=== PATIENT | female | born 1960 | race Caucasian/White ===

== ENCOUNTER → 2017-08-18 16:48 | Outpatient (CLI) | payer OTHER, SELFPAY ==
[2017-08-21 08:57] LABS: HPV APTIMA, High Risk Negative (Negative)
== END ==
PROVIDERS: Family Provider Nurse Practitioner Family; PCP Nurse Practitioner Family; Visit Provider Obstetrics & Gynecology
DX: Z12.4 Encounter for screening for malignant neoplasm of cervix (principal)
CPT/HCPCS: 88175; G0145

== ENCOUNTER → 2017-10-01 12:12 | Outpatient (CLI) | payer OTHER, SELFPAY ==
--- NOTE | 2017-10-01 12:15 | US_ITS ---
STUDY: ULTRASOUND OF THE FEMALE PELVIS - COMPLETE REASON FOR EXAM: Female, 57 years old. Fibroid TECHNIQUE: Endovaginal TECHNICAL QUALITY: Adequate. COMPARISON: None. FINDINGS: The uterus is anteverted and is in a midline position. The uterus measures 9.1 x 5.1 x 4.7 cm. Normal uterine cervix. The endometrium measures 4 mm in thickness, and is hyperechoic. There is no demonstrated endometrial mass. There is a fundal fibroid measuring 5.0 x 4.7 x 4.8 cm. Previously noted smaller fibroids are not seen. The patient does not have an I.U.D. The right ovary is visualized. The right ovary measures 10.4 x 9.0 x 7.0 cm. There is a 9.4 x 8.2 x 6.2 cm right adnexal cyst similar to previous study. There is normal arterial and normal venous vascularity. The left ovary is visualized. The left ovary measures 3.4 x 2.6 x 1.4 cm. There is a 2.3 x 1.9 x 0.9 cm left ovarian cyst. There is normal arterial and normal venous vascularity. There is no fluid in the cul-de-sac. US/Transvaginal Non- IMPRESSION: Fundal uterine fibroid. Bilateral adnexal cysts. Electronically Signed: Vamsi Vogt DO at 14:07 EDT Tel [phone], Service support ,
--- NOTE | 2017-10-01 12:15 | US_ITS ---
STUDY: ULTRASOUND OF THE FEMALE PELVIS - COMPLETE REASON FOR EXAM: Female, 57 years old. Fibroid TECHNIQUE: Endovaginal TECHNICAL QUALITY: Adequate. COMPARISON: None. FINDINGS: The uterus is anteverted and is in a midline position. The uterus measures 9.1 x 5.1 x 4.7 cm. Normal uterine cervix. The endometrium measures 4 mm in thickness, and is hyperechoic. There is no demonstrated endometrial mass. There is a fundal fibroid measuring 5.0 x 4.7 x 4.8 cm. Previously noted smaller fibroids are not seen. The patient does not have an I.U.D. The right ovary is visualized. The right ovary measures 10.4 x 9.0 x 7.0 cm. There is a 9.4 x 8.2 x 6.2 cm right adnexal cyst similar to previous study. There is normal arterial and normal venous vascularity. The left ovary is visualized. The left ovary measures 3.4 x 2.6 x 1.4 cm. There is a 2.3 x 1.9 x 0.9 cm left ovarian cyst. There is normal arterial and normal venous vascularity. There is no fluid in the cul-de-sac. US/Pelvic (Non ) IMPRESSION: Fundal uterine fibroid. Bilateral adnexal cysts. Electronically Signed: Vamsi Vogt DO at 14:07 EDT Tel [phone], Service support ,
== END ==
PROVIDERS: Family Provider Nurse Practitioner Family; PCP Nurse Practitioner Family; Visit Provider Obstetrics & Gynecology
DX: D25.0 Submucous leiomyoma of uterus (principal); Z12.31 Encounter for screening mammogram for malignant neoplasm of breast
CPT/HCPCS: 76830; 76856; 77063; 77067

== ENCOUNTER → 2017-10-01 12:16 | Outpatient (CLI) | payer OTHER, SELFPAY | PROVIDERS: Family Provider Nurse Practitioner Family; PCP Nurse Practitioner Family; Visit Provider Obstetrics & Gynecology | DX: D25.0 Submucous leiomyoma of uterus (principal) | CPT/HCPCS: 93976 ==

== ENCOUNTER → 2017-11-01 09:49 | Outpatient (CLI) | payer OTHER, SELFPAY ==
[2017-11-02 08:49] LABS: Cancer Antigen 125 9.3 U/mL (0.0-38.1); Carcinoembryonic Antigen 1.5 ng/mL (0.0-4.7)
== END ==
PROVIDERS: Family Provider Nurse Practitioner Family; PCP Nurse Practitioner Family; Visit Provider Obstetrics & Gynecology
DX: N83.201 Unspecified ovarian cyst, right side (principal); N83.202 Unspecified ovarian cyst, left side
CPT/HCPCS: 36415; 82378; 86304

== ENCOUNTER 2017-12-26 16:00 | Observation (INO) | payer OTHER, SELFPAY ==
--- NOTE | 2017-12-20 09:12 | EKG12_ITS ---
Test Reason : PRE-OP Blood Pressure : / mmHG Vent. Rate : 067 BPM Atrial Rate : 067 BPM P-R Int : 182 ms QRS Dur : 080 ms QT Int : 392 ms P-R-T Axes : 002 011 047 degrees QTc Int : 414 ms Normal sinus rhythm Normal ECG Confirmed by LEÓN BRANHAM ([id number]), order editor OBINNA CHISHOLM ([id number]) on 12/23/2017 9:11:11 AM Referred By: Isa Mcmahon Confirmed By:LEÓN BRANHAM
--- NOTE | 2017-12-24 01:40 | PCM.HPOB.BLA ---
- Problem List (1) Bilateral ovarian cysts Status: Acute Comment: plan lap BSO (2) Submucous uterine fibroid Status: Acute History and Physical Date of Admission: 12/25/17 Allergies erythromycin base Allergy (Severe, Verified 10/20/17 13:17) unknown lincomycin [From Lincocin] Allergy (Severe, Verified 10/20/17 13:17) unknown Medications omega-3 fatty acids 1,000 mg capsule 1,000 mg PO QDAY 08/18/17 [History Confirmed 10/20/17] vitamin,calcium,diactkrd-jrvk-uwgwe acid tablet 1 tab PO QDAY 08/18/17 [History Confirmed 10/20/17] bupropion HCl 150 mg tablet,12 hr sustained-release(smoking deterrent) 150 mg PO QDAY #30 tab 08/21/17 [Rx Confirmed 10/20/17] sumatriptan 100 mg tablet 100 mg PO ONCE 10/20/17 [History Confirmed 10/20/17] Is last menstrual period known: No Patient : No : No PFSH Medical History Ovarian cyst (Acute) Retinal detachment (Acute) Uterine fibroid (Acute) Surgical History History of surgical procedure on eye proper using laser (Acute) Hx of tonsillectomy (Acute) Family History Father Lung cancer Other Family hx of hypertension Social History Smoking Status: Never smoker alcohol intake: never substance use type: does not use caffeine: Yes what type of physical activity do you participate in: walking, aerobics frequency: 5-6 times per week seatbelt use: always do you feel safe at home: Yes additional social history: -RN HPI F/U US: Details: ALONZO MERRITT is a 57 year old who presents for fu after her ultrasound. her ovarian cyst was noted to be a little bigger. she is ready for surgery now. she has a fibroid to obut does not desire a hysterectomy. Pregancy History 0 Elective abortions Hx Para Spontaneous abortions Hx # Term Pregnancies Ectopic pregnancies Hx # Pregnancies Multiple births # of living children ROS Const Constitutional: Denies poor appetite, headache(s), fever(s), increased appetite, weight gain, weight loss or fatigue ENT ENT: Denies dry mouth GI GI: Reports as per HPI; denies vomiting, nausea, abdominal pain or constipation : Reports as per HPI; denies difficulty urinating, blood in urine, pelvic pain, urinary frequency, urinary incontinence, urinary hesitancy, urinary urgency, vaginal discharge, vaginal dryness, vaginal odor, vaginal itching, other, painful urination or nipple discharge Skin Skin/Breast: Denies hair loss, change in hair, dry skin, breast pain, breast skin changes, breast lump or nipple discharge Exam Const General: cooperative, healthy appearing, comfortable, no acute distress, well developed Nutritional Appearance: average body habitus Orientation: alert HENMI Head: normal to inspection, normocephalic Ears: hearing grossly normal bilaterally, external ears normal Nose: external nose normal, nares normal Face and sinus: normal facial exam Neck Neck: normal visual inspection, trachea midline, no lymphadenopathy Thyroid: thyroid normal Resp Effort & Inspection: normal respiratory effort Musc Other: gross motor intact no deficits, full bilateral strength Skin General: no rashes or lesions noted Neuro Motor: muscle tone normal throughout Assessment & Plan Problems 1. Bilateral ovarian cysts N83.201; N83.202 plan lap BSO 2. Submucous uterine fibroid D25.0 Plan discussed surgical risks including risks of anesthesia, infection, bleeding, injury to bowel, bladder or blood vessels, and patient wishes to proceed with surgery. Orders Orders: Cancer Antigen 125 10/20/17 N83.201, N83.202 Carcinoembryonic Antigen 10/20/17 N83.201, N83.202 UPDATE- I have seen the patient and performed any clinically relevant updates to the history and physical exam. Isa Mcmahon MD
[2017-12-25] VITALS (12 sets, daily range): BP systolic 96–118; BP diastolic 53–89; PULSE 58–100; RESP 14–18; TEMP 36.1–36.9; O2SAT 91–100; BMI 36.1
--- NOTE | 2017-12-25 | FLU_PTH ---
PATIENT: ALONZO DUEÑAS LOC: [facility]3 U#:[id number] AGE/SX: 57/F ROOM: MS318 RE12/26/[address]: Dr. Isa Mcmahon MD : 1960 BED: 1 DIS: 12/28/2017 SPEC #: [id number] RECD: 12/25/17 14:28 STATUS: DELFINO REDileep #: [id number] JOAQUIN: 12/25/17 00:[address]: Isa Mcmahon DEPT: CYTOLOGY RECD BY: Cole Chamorro ENTERED: 12/25/17 14:28 SP TYPE: Fluid OTHR DR: Rk Adrian, HOOK TENDER-C Tissues: Pelvis, NOS Procedures: Special Stain Group II Surgery Specimen Level IV Cytospin Fluid HEADER OPERATION: Laparoscopy converted to mini laparotomy, bilateral salpingo-oophorectomy PRE-OP DIAGNOSIS: Bilateral ovarian cysts, submucous uterine fibroid TISSUE SUBMITTED: Pelvic washings DIAGNOSIS CYTOLOGY Pelvic washings (cytospin and cell block): Negative for malignant cells. AM:sommer 12/26/17 CYTOLOGY STUDY Slides are reviewed. CYTOLOGY GROSS Received is 10 ml of pink cloudy fluid labeled with the patient's name and and designated per the requisition as pelvic washings. Submitted for cytology preparation including cell block. / 12/25/17 TC:5 CPT: 80275, 30269
[2017-12-25] MEDS: Phenazopyridine 95 MG Tablet 190 MG PO (08:25)
--- NOTE | 2017-12-25 09:30 | OV_PTH ---
PATIENT: ALONZO DUEÑAS LOC: [facility]3 U#:[id number] AGE/SX: 57/F ROOM: MS318 RE12/26/[address]: Dr. Isa Mcmahon MD : 1960 BED: 1 DIS: 12/28/2017 SPEC #: [id number] RECD: 12/25/17 16:04 STATUS: DELFINO MARTIN #: [id number] JOAQUIN: 12/25/17 09:[address]: Isa Mcmahon DEPT: SURGICAL PATHOLOGY RECD BY: Pj Joseph ENTERED: 12/26/17 12:22 SP TYPE: OVARY OTHR DR: Rk Adrian, HOEING ROW BOSS-C Tissues: Right ovary Procedures: Surgery Specimen Level V HEADER OPERATION: Laparoscopy converted to mini laparotomy, bilateral salpingo-oophorectomy PRE-OP DIAGNOSIS: Bilateral ovarian cysts, submucous uterine fibroid TISSUE SUBMITTED: Bilateral fallopian tubes and ovaries, right ovarian cyst MICROSCOPIC DIAGNOSIS Bilateral fallopian tubes, bilateral salpingo-oophorectomy: Bilateral ovaries - simple serous cystadenoma. Bilateral fallopian tubes - no pathologic diagnosis. Focal tubo-ovarian adhesions. SJ:rg 12/29/17 COMMENT Case has been reviewed in consultation with Dr. Nicole who concurs with the above diagnosis. IDC:[email or web address] MICROSCOPIC DESCRIPTION Slides are reviewed. GROSS DESCRIPTION Received in fixative is one container labeled with the patient's name and designated fallopian tubes and right ovary and cyst. The specimen consists of a cystic structure that is light hoyt in color measuring 8 x 6 x 2 cm. The external surface is smooth and glistening. No papillary projections are identified. A fallopian tube is adherent closely to the external surface. This fallopian tube measures 6 cm in length and 0.5 cm in average diameter. The inner cyst wall lining is smooth and glistening. No papillary projections are seen. The cyst wall averages 0.2 cm in thickness. Content Management Consultant sections of this cystic ovary and adjacent fallopian tube are inked in black ink and submitted in cassettes 1-3. The other ovary and fallopian tube complex consists of a cystic ovary measuring 4.5 x 3 x 2 cm. The adjacent fallopian tube measures 5 cm in length and 0.5 cm in average diameter. Tubo-ovarian adhesions appear to be present between the ovary and the fallopian tube. The external surface of the ovary and fallopian tube are inked in blue ink. The external surface of the ovary is smooth and glistening. No papillary projections are identified. The cystic ovary contains thin, clear fluid. The inner cyst wall lining is smooth and glistening. No papillary projections or excrescences are identified. The cyst wall averages 0.1 cm in thickness. Almost 90% of the both ovaries are replaced by the cysts. Content Management Consultant sections of this second ovary and adjacent fallopian tube are submitted in cassettes 4-6. / AM:sommer 12/26/17 TC:1 CPT: 51085 x2
[2017-12-25] MEDS: Bupivacaine Mpf 0.5% 30 ML VIAL (10:50)
--- NOTE | 2017-12-25 10:52 | OP.PCM_ITS ---
Problem List (1) Bilateral ovarian cysts Status: Acute Comment: plan lap BSO (2) Submucous uterine fibroid Status: Acute Report of Operation Date of Procedure: 12/25/17 Pre-Operative Diagnosis: Ovarian cysts Post-Operative Diagnosis: Same plus severe pelvic adhesion disease, inadvertent cystotomy Surgery/Procedure Performed:: diagnostic laparoscopy, minilaparotomy to repair cystotomy, bilateral salpingo-oophorectomy, cytologic washings Description of Surgical Findings:: Bilateral ovarian cyst with the right measuring 7 x 6 cm, severe pelvic adhesion disease with omental to anterior abdominal wall adhesions, bladder to ovarian and abdominal wall and omental adhesions. Ovarian fossa adhesions bilaterally. And sigmoid to pelvic sidewall adhesions heavy equipment operating engineer: Melanie Anderson Type of Anesthesia:: General Special Medications: Cefoxitin, Damaso Specimen's removed: Bilateral tubes and ovaries and cytologic washings Drains: Olivares Estimated Blood Loss (mL): 100 cc Fluids Replaced: Crystalloid Description of Procedure: Patient was taken in the operating room and was placed under general anesthesia was prepped and draped in normal sterile fashion in the dorsal lithotomy position. Bladder was drained of clear urine and SCDs were on preoperatively. Uterus was sounded and a uterine manipulator was placed after dilating. Attention was then paid to the abdominal portion of the procedure and the umbilicus was elevated with towel clamps and injected with Marcaine and after a 12 mm incision was made and the Veress needle was entered into the abdomen confirmed to be intra-abdominal with a low opening pressure of less than 5 mmHg. Abdomen was insufflated with CO2 gas and a 12 mm optical trocar was placed under direct visualization. The entire omentum was noted to be adherent to the abdominal wall and therefore a left lower quadrant port was placed carefully and progressive adhesio lysis was performed using the LigaSure device to be able to free up the omentum from the anterior abdominal wall to put in the right lower quadrant port. There were left sigmoid to pelvic sidewall adhesions that were taken down bluntly and with the LigaSure device. It is very difficult to see the tissue planes but they were taken down carefully both bluntly and sharply with the LigaSure device. The uterus was encased in adhesions in the omentum which was dissected out and freed. An additional 5 mm suprapubic port was placed to aid in retraction for dissection. It was difficult to see the end of the omentum and where it was attached at the lower pelvis. The tissue plane was dissected down which became continuous with the vesicouterine peritoneum. The omentum was transected on the left side and then dissection continued down the right. At this time it was noted that there was an inadvertent cystotomy during one of the tissue plane dissections through the right side of the dome of the bladder. Dr. leal with urology was called to repair and he recommended a mini laparotomy be done to perform the best repair. A 7 cm Pfannenstiel skin incision was made with the scalpel through the lower suprapubic port site that had been previously placed and the incision carried through the layer of the fascia and peritoneum entered digitally. Incision stretched and a Leena retractor was used to visualize the dome of the bladder. Please see Dr. Leal's dictation for the bladder repair. This time blunt dissection was used to dissect around the ovary on the patient's right side to free the ovary to be able to be removed. The cyst was incised and clear serous fluid was removed. The infundibulopelvic ligament was transected with the Oleg clamp and 0 Vicryl suture. The uterine ovarian ligament was also transected with the Oleg clamp cut and suture ligated with 0 Vicryl. Hemostasis was noted. At this time the left ovary which was noted to be grossly abnormal and with a club fallopian tube was elevated and transected across the infundibulopelvic ligament and the utero- ovarian ligament to remove the fallopian tube and ovary without complication. Excellent hemostasis was noted but a raw appearance was noted to the operative areas and therefore Damaso was applied. The areas were monitored and no significant bleeding was seen. Peritoneum was closed with 3 O Monocryl and fascia closed with 0 Vicryl. Subcutaneous tissue was reapproximated with 2-0 Vicryl and the skin was closed with 3-0 Monocryl. Patient was taken to recovery in stable condition after all the other port sites were removed and closed including a fascial stitch and the umbilicus due to the 12 mm trocar site. Grafts/Implants Used: None - Complications Inadvertent cystotomy - Admit VTE Documentation VTE Present on Admission: No VTE Mechan Device Prophylaxis: SCD's
--- NOTE | 2017-12-25 10:53 | PCM.DC.TUB ---
Discharge Diet: No Restrictions - Increase fluid intake for the next 48 hours. Discharge Activity: Return to Normal Activity, May Drive - when you are no longer taking narcotic pain medications., May Shower, May Take a Tub Bath - in 7 days Additional Activity Instructions:: Ambulate often the next week after surgery. Nothing in the vagina for 5 days. Call your doctor if your incision/area has: Continuous Slow Oozing, Sudden Increased Bleeding, Increased Pain/ Swelling, Increased Redness, Foul Smelling Discharge Call your doctor if you observe: Fever of 101 or Higher Allergies/Adverse Reactions: Allergies erythromycin base Allergy (Severe, Verified 12/18/17 10:49) unknown lincomycin [From Lincocin] Allergy (Severe, Verified 12/18/17 10:49) unknown Medications to take at Discharge omega-3 fatty acids 1,000 mg capsule 1,000 mg PO QDAY 08/18/17 vitamin,calcium,rhhdwrxg-aobv-cjckr acid tablet 1 tab PO QDAY 08/18/17 sumatriptan 100 mg tablet 100 mg PO ONCE PRN 10/20/17 Bupropion HCl [Zyban] 150 mg PO QDAY 12/18/17 Naproxen [Naprosyn] 250 - 500 mg PO Q8H PRN PRN #30 tablet 12/25/17 Oxycodone HCl/Acetaminophen [Percocet 5-325] 1 - 2 tablet PO Q4H PRN PRN 7 Days #15 tablet 12/25/17 The following prescriptions were given: Oxycodone HCl/Acetaminophen [Percocet 5-325] 1 - 2 tablet PO Q4H PRN PRN 7 Days #15 tablet PRN Reason: Pain Naproxen [Naprosyn] 250 - 500 mg PO Q8H PRN PRN #30 tablet PRN Reason: MILD PAIN Primary Care Physician: Rk Adrian, PRISONER CLASSIFICATION INTERVIEWER-C [Primary Care Provider] - Test Results: Test results from this visit will be discussed in further detail at your follow-up appointment, if applicable. Please Follow Up With: Isa Mcmahon MD - [phone]
--- NOTE | 2017-12-25 12:36 | PCM.OPRPT ---
Report of Operation Date of Procedure: 12/25/17 Pre-Operative Diagnosis: Injury to the dome of the bladder Post-Operative Diagnosis: Same Surgery/Procedure Performed:: Open repair of bladder injury and cystotomy, cystoscopy Description of Surgical Findings:: 57-year-old female was undergoing a laparoscopic nephrectomy was called in to assist because during the procedure the recognized a bladder injury immediately came to the surgery to assist laparoscopically looked at the bladder and there was a flap on the top of the bladder I had been opened up, it was a V-shaped flap about 3 cm in size total I did not think I could close this laparoscopically given the complexity of the repair therefore recommended we proceed with an open repair, we made a lower Pfannenstiel incision very small incision and found the midline of the rectus pulled the rectus medially put a wick retractor in and then use the retractor to then pull the bladder into the field identified the flap and the bladder and closed the first layer with a 3-0 Vicryl it was a V-shaped closure once this was closed then we closed the second layer with 2-0 Vicryl, after the 2 layer closure was completed and appear to be a complete closure of the bladder then took out the catheter we filled the bladder up with water looked inside the bladder with a scope identified the left and right ureteral orifices these were clear effluxing nicely with no injury could see the repair in the dome of the bladder, there was no report of any leakage and the bladder was watertight. At this point catheter was put in the bladder the case was then turned back over to the primary surgeon who is going to continue with the oophorectomy. She will need to go home the catheter my office will call for an appointment in 2 weeks for cystogram and a follow-up. entry level finance: Melanie Anderson Type of Anesthesia:: General Drains: Olivares Fluids Replaced: Crystalloid - Admit VTE Documentation VTE Present on Admission: Yes VTE Mechan Device Prophylaxis: SCD's
--- NOTE | 2017-12-25 12:40 | OP.PCM_ITS ---
Report of Operation Date of Procedure: 12/25/17 Pre-Operative Diagnosis: Injury to the dome of the bladder Post-Operative Diagnosis: Same Surgery/Procedure Performed:: Open repair of bladder injury and cystotomy, cystoscopy Description of Surgical Findings:: 57-year-old female was undergoing a laparoscopic nephrectomy was called in to assist because during the procedure the recognized a bladder injury immediately came to the surgery to assist laparoscopically looked at the bladder and there was a flap on the top of the bladder I had been opened up, it was a V-shaped flap about 3 cm in size total I did not think I could close this laparos copically given the complexity of the repair therefore recommended we proceed with an open repair, we made a lower Pfannenstiel incision very small incision and found the midline of the rectus pulled the rectus medially put a wick retractor in and then use the retractor to then pull the bladder into the field identified the flap and the bladder and closed the first layer with a 3-0 Vicryl it was a V-shaped closure once this was closed then we closed the second layer with 2-0 Vicryl, after the 2 layer closure was completed and appear to be a complete closure of the bladder then took out the catheter we filled the bladder up with water looked inside the bladder with a scope identified the left and right ureteral orifices these were clear effluxing nicely with no injury could see the repair in the dome of the bladder, there was no report of any leakage and the bladder was watertight. At this point catheter was put in the bladder the case was then turned back over to the primary surgeon who is going to continue with the oophorectomy. She will need to go home the catheter my office will call for an appointment in 2 weeks for cystogram and a follow-up. grounds cleaner: Melanie Anderson Type of Anesthesia:: General Drains: Olivares Fluids Replaced: Crystalloid - Admit VTE Documentation VTE Present on Admission: Yes VTE Mechan Device Prophylaxis: SCD's
[2017-12-25 13:50] LABS: Cytology, Body Fluid / CSF SEE PATHOLOGY REPORT
[2017-12-25] MEDS: Lactated Ringers 1,000 ML 125 ML IV (17:08)
[2017-12-25] MEDS: Ketorolac 30 MG/ML Syringe IV ×2 (17:08→22:14)
[2017-12-25] MEDS: 0.9% NaCl Peripheral Flush Adult/Peds IV (17:13)
[2017-12-25] MEDS: Enoxaparin 40 MG/0.4 ML Syringe SC (22:14)
[2017-12-25] MEDS: Lactated Ringers 500 ML 999 ML IV (23:50)
[2017-12-26 02:15] VITALS: BP 102/45; PULSE 96; RESP 18; TEMP 36.9; O2SAT 94
[2017-12-26] MEDS: Lactated Ringers 1,000 ML 125 ML IV ×3 (04:37→16:53)
[2017-12-26] MEDS: Ketorolac 30 MG/ML Syringe IV ×4 (04:37→22:15)
[2017-12-26 06:45] VITALS: O2SAT 96
[2017-12-26 06:57] LABS: Hematocrit 31.5 % (37-47); Hemoglobin 10.6 g/dl (12.0-15.0); Mean Corp Hgb Conc 33.7 g/gl (32-36); Mean Corpuscular Hgb 29.9 pg (27.0-32.0); Mean Corpuscular Volume 88.7 fL (81-99); Mean Platelet Vol. 9.7 fl (6.2-12.0); Platelet Count 237 K/mm3 (150-450); RBC Distribution Width CV 13.4 % (11.6-14.6); RBC Distribution Width SD 43.6 fl (35.1-43.9); Red Blood Count 3.55 M/mm3 (4.2-5.4); Scan Indicated on CBC? Y/N NO; White Blood Count 6.3 K/mm3 (4.4-11.0)
[2017-12-26 09:02] VITALS: BP 99/60; PULSE 82; RESP 18; TEMP 36.8; O2SAT 94
[2017-12-26] MEDS: buPROPion (SR) 150 MG Tablet.SA PO (09:10)
[2017-12-26] MEDS: Lactated Ringers 500 ML 999 ML IV (09:30)
[2017-12-26] MEDS: 0.9% NaCl Peripheral Flush Adult/Peds IV ×2 (10:15→17:23)
[2017-12-26] MEDS: Ondansetron 4 MG/2 ML Vial IV ×3 (10:15→21:05)
[2017-12-26] MEDS: Prenatal Vits Tablet 1 TABLET PO (12:06)
--- NOTE | 2017-12-26 13:09 | NURSING ---
Dr. Leal called in and spoke with BERTA Joy. He states that pt will be discharged with goode catheter.
[2017-12-26 14:15] VITALS: BP 103/66; PULSE 76; RESP 18; TEMP 37.2; O2SAT 95; O2SAT 98
[2017-12-26] MEDS: Acetaminophen 500 MG Tablet 1000 MG PO (16:52)
[2017-12-26 20:15] VITALS: BP 119/71; PULSE 70; RESP 16; TEMP 37.2; O2SAT 95
[2017-12-26] MEDS: Enoxaparin 40 MG/0.4 ML Syringe SC (22:15)
[2017-12-27] MEDS: Lactated Ringers 1,000 ML 125 ML IV ×3 (00:34→16:43)
[2017-12-27 02:15] VITALS: BP 136/82; PULSE 73; RESP 16; TEMP 37.3; O2SAT 97
[2017-12-27] MEDS: Ketorolac 30 MG/ML Syringe IV ×4 (05:21→23:03)
[2017-12-27] MEDS: Ondansetron 4 MG/2 ML Vial IV ×3 (05:22→13:41)
[2017-12-27 07:44] VITALS: O2SAT 94
[2017-12-27 08:15] VITALS: BP 134/76; PULSE 74; RESP 18; TEMP 36.6; O2SAT 95
[2017-12-27] MEDS: 0.9% NaCl Peripheral Flush Adult/Peds IV ×5 (09:15→17:38)
[2017-12-27] MEDS: buPROPion (SR) 150 MG Tablet.SA PO (09:56)
[2017-12-27] MEDS: Prenatal Vits Tablet 1 TABLET PO (09:56)
[2017-12-27 13:35] VITALS: BP 130/67; PULSE 72; RESP 16; TEMP 37.1; O2SAT 92
[2017-12-27 14:01] VITALS: O2SAT 97
--- NOTE | 2017-12-27 14:07 | PCM.PN.OB ---
Subjective: late entry- patient seen 12/26/18 at 740 am- no CP SOB having some nausea tolerating clears. pain controlled and minimal. - Physical Exam General: Alert, Oriented x3 Abdomen: Soft, Non Tender, Non-Distended Vital Signs Temp Pulse Resp BP Pulse Ox 98.7 F 72 16 130/67 H 97 12/27/17 13:35 12/27/17 13:35 12/27/17 13:35 12/27/17 13:35 12/27/17 14:01 Oxygen Flow Rate (L/min) 2 Oxygen Delivery Method Nasal Cannula Weight: 203 lb 11.314 oz Body Mass Index (BMI) 36.1 Intake and Output for Last 24 Hours 12/25/17 12/26/17 12/27/17 23:59 23:59 23:59 Intake Total 4739 / 4739 5052 / 5052 3056 / 3056 Output Total 900 / 900 760 / 760 2200 / 2200 Balance 3839 / 3839 4292 / 4292 856 / 856 Medical Necessity - Tobacco Use Smoking Status: Never smoker Assessment/Plan All Active Problems (Last Reviewed 10/20/17 @ 13:17 by Ivet Angel) Bilateral ovarian cysts (Acute) Submucous uterine fibroid (Acute) s/p laparoscopy and minilaparotomy with cystotomy repair, extensive VITO, BSO 1. s/p cystotomy- catheter in place, continue 14 days and fu as OP with dr Leal for removal. 2. laparotomy- ambulate, oral pain control 3. GI function- advance diet
--- NOTE | 2017-12-27 14:10 | PCM.PN.OB ---
Subjective: patient having persistent nause and vomiting despite zofran therapy, tolerating minimal clears. positive flatus and pain controlled with minimal meds. no CP SOB - Physical Exam General: Alert, Oriented x3 Abdomen: Soft, Non Tender, Non-Distended, Hypoactive Bowel Sounds Vital Signs Temp Pulse Resp BP Pulse Ox 98.7 F 72 16 130/67 H 97 12/27/17 13:35 12/27/17 13:35 12/27/17 13:35 12/27/17 13:35 12/27/17 14:01 Oxygen Flow Rate (L/min) 2 Oxygen Delivery Method Nasal Cannula Weight: 203 lb 11.314 oz Body Mass Index (BMI) 36.1 Intake and Output for Last 24 Hours 12/25/17 12/26/17 12/27/17 23:59 23:59 23:59 Intake Total 4739 / 4739 5052 / 5052 3056 / 3056 Output Total 900 / 900 760 / 760 2200 / 2200 Balance 3839 / 3839 4292 / 4292 856 / 856 Medical Necessity - Tobacco Use Smoking Status: Never smoker Assessment/Plan All Active Problems (Last Reviewed 10/20/17 @ 13:17 by Ivet Angel) Bilateral ovarian cysts (Acute) Submucous uterine fibroid (Acute) s/p laparoscopy and minilaparotomy with cystotomy repair, extensive VITO, BSO pod 2 1. s/p cystotomy- catheter in place, continue 14 days and fu as OP with dr Leal for removal. 2. laparotomy- ambulate, oral pain control 3. GI function- add phenergan, if no improvement switch to reglan. advance diet as tolerated. hold dc due to N/V
[2017-12-27] MEDS: proMETHazine 25 MG/ML Syringe 12.5 MG IV ×2 (16:39→23:00)
[2017-12-27 22:51] VITALS: BP 130/73; PULSE 73; RESP 14; TEMP 37.1; O2SAT 94
[2017-12-27] MEDS: Enoxaparin 40 MG/0.4 ML Syringe SC (23:03)
[2017-12-28] MEDS: Rizatriptan Benzoate 10 MG Tablet PO (00:27)
[2017-12-28] MEDS: Lactated Ringers 1,000 ML 125 ML IV (01:39)
[2017-12-28 02:52] VITALS: BP 130/69; PULSE 71; RESP 14; TEMP 36.8; O2SAT 93
[2017-12-28] MEDS: Ketorolac 30 MG/ML Syringe IV (05:54)
[2017-12-28 08:21] VITALS: O2SAT 95
[2017-12-28 08:56] VITALS: BP 123/67; PULSE 68; RESP 16; TEMP 37.1; O2SAT 94
[2017-12-28] MEDS: buPROPion (SR) 150 MG Tablet.SA PO (08:58)
[2017-12-28] MEDS: Prenatal Vits Tablet 1 TABLET PO (08:58)
--- NOTE | 2017-12-28 11:07 | PCM.PN.OB ---
Subjective: doingw ell nausea resolved, no nausea or emesis since yesterday, ambualting voiding toleratin po no CP SOB - Physical Exam General: Alert, Oriented x3 Abdomen: Soft, Non Tender, Non-Distended Vital Signs Temp Pulse Resp BP Pulse Ox 98.7 F 68 16 123/67 H 94 12/28/17 08:56 12/28/17 08:56 12/28/17 08:56 12/28/17 08:56 12/28/17 08:56 Oxygen Flow Rate (L/min) 2 Oxygen Delivery Method Room Air Weight: 203 lb 11.314 oz Body Mass Index (BMI) 36.1 Intake and Output for Last 24 Hours 12/26/17 12/27/17 12/28/17 23:59 23:59 22:59 Intake Total 5052 / 5052 3658 / 3658 2171 / 2171 Output Total 760 / 760 3200 / 3200 2725 / 2725 Balance 4292 / 4292 458 / 458 -554 / -554 Medical Necessity - Tobacco Use Smoking Status: Never smoker Assessment/Plan All Active Problems (Last Reviewed 10/20/17 @ 13:17 by Ivet Angel) Bilateral ovarian cysts (Acute) Submucous uterine fibroid (Acute) s/p laparoscopy and minilaparotomy with cystotomy repair, extensive VITO, BSO pod 2 1. s/p cystotomy- catheter in place, continue 7-14 days and fu as OP with dr Leal for removal. 2. laparotomy- ambulate, oral pain control 3. GI function- improved bowel sounds, positive flatus, no emesis now and tolerating adequate po. dc home
[2017-12-28] MEDS: Ketorolac 10 MG Tablet PO (11:32)
[2017-12-28 12:47] VITALS: BP 123/80; PULSE 72; RESP 16; TEMP 36.6; O2SAT 96
--- NOTE | 2017-12-28 12:50 | NURSING ---
Discharge instructions given and explained to pt. All questions and concerns addressed. Olivares converted to leg bag, pt states understanding and demonstrates how to do this. Pt given prescription to take home. Pt's mother here to take her home.
--- NOTE | 2017-12-29 13:20 | PCM.DC.SUM ---
Discharge Date and Diagnosis Date of Admission: 12/25/17 Date of Discharge: 12/28/17 Hospital Course and Treatment urology with dr gamble Operations: - - laparoscopy, miilaparotomy with BSO and bladder repair Procedures: None Summary of Care Provided: The patient is a 57 year old F presented for laparoscopic BSO due to bilateral large ovarian cysts, and at the time of surgery severe adhesive disease was seen. she underwent adhesiolysis and an inadvertent cystotomy was performed and then repaired via mini laparotomy by dr gamble. remainder of the surgery was completed through the mini lap and she underwent a recovery complicated by initial severe nausea and emesis which resolved with anti emetics. by POD 3 she was stable to be discharged home with the cath in place to be removed in the office by dr gamble at a later date. - Physical Exam Vital Signs Temp Pulse Resp BP Pulse Ox 97.9 F 72 16 123/80 H 96 12/28/17 12:47 12/28/17 12:47 12/28/17 12:47 12/28/17 12:47 12/28/17 12:47 Oxygen Flow Rate (L/min) 2 Oxygen Delivery Method Room Air Weight: 203 lb 11.314 oz Body Mass Index (BMI) 36.1 Intake and Output for Last 24 Hours 12/28/17 12/28/17 12/29/17 00:59 23:59 23:59 Intake Total Output Total Balance Laboratory Tests Past 24 Hrs 12/25/17 13:49 Miscellaneous Cytology SEE PATHOLOGY REPORT Discharge Diet: No Restrictions - Increase fluid intake for the next 48 hours. Discharge Activity: Return to Normal Activity, May Drive - when you are no longer taking narcotic pain medications., May Shower, May Take a Tub Bath - in 7 days Additional Activity Instructions:: Ambulate often the next week after surgery. Nothing in the vagina for 5 days. Call your doctor if your incision/area has: Continuous Slow Oozing, Sudden Increased Bleeding, Increased Pain/ Swelling, Increased Redness, Foul Smelling Discharge Call your doctor if you observe: Fever of 101 or Higher Home Medications: Medications to take at Discharge omega-3 fatty acids 1,000 mg capsule 1,000 mg PO QDAY 08/18/17 vitamin,calcium,dnwpoftl-wsks-btvfc acid tablet 1 tab PO QDAY 08/18/17 sumatriptan 100 mg tablet 100 mg PO ONCE PRN 10/20/17 Bupropion HCl [Zyban] 150 mg PO QDAY 12/18/17 Naproxen [Naprosyn] 250 - 500 mg PO Q8H PRN PRN #30 tablet 12/25/17 Naproxen [Naprosyn] 250 - 500 mg PO Q8H PRN PRN #30 tablet 12/25/17 Oxycodone HCl/Acetaminophen [Percocet 5-325] 1 - 2 tablet PO Q4H PRN PRN 7 Days #15 tablet 12/25/17 Oxycodone HCl/Acetaminophen [Percocet 5-325] 1 - 2 tablet PO Q4H PRN PRN 7 Days #28 tablet 12/25/17 Following Prescrptions Were Given to Patient: Oxycodone HCl/Acetaminophen [Percocet 5-325] 1 - 2 tablet PO Q4H PRN PRN 7 Days #15 tablet PRN Reason: Pain Oxycodone HCl/Acetaminophen [Percocet 5-325] 1 - 2 tablet PO Q4H PRN PRN 7 Days #28 tablet PRN Reason: Moderate-Severe pain Naproxen [Naprosyn] 250 - 500 mg PO Q8H PRN PRN #30 tablet PRN Reason: MILD PAIN Naproxen [Naprosyn] 250 - 500 mg PO Q8H PRN PRN #30 tablet PRN Reason: MILD PAIN Primary Care Physician: Rk Adrian NP-C [Primary Care Provider] - Please Follow Up With: Isa Mcmahon MD - [phone] Medical Necessity - Tobacco Use Smoking Status: Never smoker Meaningful Use Info Meaningful Use Diagnoses (Choose all that apply): None applicable
--- NOTE | 2017-12-29 13:24 | DS.PCM_ITS ---
Discharge Date and Diagnosis Date of Admission: 12/25/17 Date of Discharge: 12/28/17 Hospital Course and Treatment urology with dr gamble Operations: - - laparoscopy, miilaparotomy with BSO and bladder repair Procedures: None Summary of Care Provided: The patient is a 57 year old F presented for laparoscopic BSO due to bilateral large ovarian cysts, and at the time of surgery severe adhesive disease was s een. she underwent adhesiolysis and an inadvertent cystotomy was performed and then repaired via mini laparotomy by dr gamble. remainder of the surgery was completed through the mini lap and she underwent a recovery complicated by initial severe nausea and emesis which resolved with anti emetics. by POD 3 she was stable to be discharged home with the cath in place to be removed in the office by dr gamble at a later date. - Physical Exam Vital Signs Temp Pulse Resp BP Pulse Ox 97.9 F 72 16 123/80 H 96 12/28/17 12:47 12/28/17 12:47 12/28/17 12:47 12/28/17 12:47 12/28/17 12:47 Oxygen Flow Rate (L/min) 2 Oxygen Delivery Method Room Air Weight: 203 lb 11.314 oz Body Mass Index (BMI) 36.1 Intake and Output for Last 24 Hours 12/28/17 12/28/17 12/29/17 00:59 23:59 23:59 Intake Total Output Total Balance Laboratory Tests Past 24 Hrs 12/25/17 13:49 Miscellaneous Cytology SEE PATHOLOGY REPORT Discharge Diet: No Restrictions - Increase fluid intake for the next 48 hours. Discharge Activity: Return to Normal Activity, May Drive - when you are no longer taking narcotic pain medications., May Shower, May Take a Tub Bath - in 7 days Additional Activity Instructions:: Ambulate often the next week after surgery. Nothing in the vagina for 5 days. Call your doctor if your incision/area has: Continuous Slow Oozing, Sudden Increased Bleeding, Increased Pain/ Swelling, Increased Redness, Foul Smelling Discharge Call your doctor if you observe: Fever of 101 or Higher Home Medications: Medications to take at Discharge omega-3 fatty acids 1,000 mg capsule 1,000 mg PO QDAY 08/18/17 vitamin,calcium,yzdwmjho-sevg-qqncf acid tablet 1 tab PO QDAY 08/18/17 sumatriptan 100 mg tablet 100 mg PO ONCE PRN 10/20/17 Bupropion HCl [Zyban] 150 mg PO QDAY 12/18/17 Naproxen [Naprosyn] 250 - 500 mg PO Q8H PRN PRN #30 tablet 12/25/17 Naproxen [Naprosyn] 250 - 500 mg PO Q8H PRN PRN #30 tablet 12/25/17 Oxycodone HCl/Acetaminophen [Percocet 5-325] 1 - 2 tablet PO Q4H PRN PRN 7 Days #15 tablet 12/25/17 Oxycodone HCl/Acetaminophen [Percocet 5-325] 1 - 2 tablet PO Q4H PRN PRN 7 Days #28 tablet 12/25/17 Following Prescrptions Were Given to Patient: Oxycodone HCl/Acetaminophen [Percocet 5-325] 1 - 2 tablet PO Q4H PRN PRN 7 Days #15 tablet PRN Reason: Pain Oxycodone HCl/Acetaminophen [Percocet 5-325] 1 - 2 tablet PO Q4H PRN PRN 7 Days #28 tablet PRN Reason: Moderate-Severe pain Naproxen [Naprosyn] 250 - 500 mg PO Q8H PRN PRN #30 tablet PRN Reason: MILD PAIN Naproxen [Naprosyn] 250 - 500 mg PO Q8H PRN PRN #30 tablet PRN Reason: MILD PAIN Primary Care Physician: Rk Adrian NP-C [Primary Care Provider] - Please Follow Up With: Isa Mcmahon MD - [phone] Medical Necessity - Tobacco Use Smoking Status: Never smoker Meaningful Use Info Meaningful Use Diagnoses (Choose all that apply): None applicable
== END 2017-12-28 13:00 | disposition home or self-care (01) ==
LOC: MS3 12-29 13:38 → SDC 12-29 13:38
PROVIDERS: Urology; Admitting Provider Obstetrics & Gynecology; Family Provider Nurse Practitioner Family; PCP Nurse Practitioner Family; Referring Provider Obstetrics & Gynecology; Visit Provider Obstetrics & Gynecology
PROC: (CPT 58661; principal; 2017-12-25 09:15)
PROC: (CPT 49000; 2017-12-25 09:15)
DX: D25.0 Submucous leiomyoma of uterus (principal); D27.1 Benign neoplasm of left ovary; D27.0 Benign neoplasm of right ovary; N73.6 Female pelvic peritoneal adhesions (postinfective); Z79.899 Other long term (current) drug therapy; N99.71 Accidental puncture and laceration of a genitourinary system organ or structure during a genitourinary system procedure; Y65.8 Other specified misadventures during surgical and medical care; Y92.234 Operating room of hospital as the place of occurrence of the external cause; F32.9 Major depressive disorder, single episode, unspecified; G43.909 Migraine, unspecified, not intractable, without status migrainosus
CPT/HCPCS: 00840; 51860; 58661; 36415; 85027; 88108; 88305; 88307; 88313; 93005; 96361; 96372; 96374; 96375; 96376; 97802; 99218; J7120; A4216; G0378; G0379; J2405

== ENCOUNTER → 2018-01-01 09:15 | Outpatient (CLI) | payer OTHER, SELFPAY ==
--- NOTE | 2018-01-01 09:40 | RAD_ITS ---
CLINICAL HISTORY: Female, 57 years old. Follow-up for bladder injury. PROCEDURE: Cystogram. FLUOROSCOPY TIME (if supplied): (0:41) minutes/seconds 100 mL of contrast installed into the bladder in a retrograde fashion through the indwelling Olivares catheter. The radiologist installed the contrast into the bladder. TECHNIQUE: (All elements of maximal sterile barrier technique followed, including US elements as applicable) Contrast was introduced through the indwelling Olivares catheter. The urinary bladder is unremarkable. There is no evidence of leakage. No post void residual. RAD/Voiding Urethrocystography IMPRESSION: Unremarkable cystogram. Electronically Signed: Santos Mishra MD at 15:38 EST Tel [phone], Service support ,
== END ==
PROVIDERS: Family Provider Nurse Practitioner Family; PCP Nurse Practitioner Family; Referring Provider Urology; Visit Provider Urology
DX: S37.20XA Unspecified injury of bladder, initial encounter (principal)
CPT/HCPCS: 51600; 74455; Q9965

== ENCOUNTER → 2019-09-30 10:10 | Outpatient (CLI) | payer OTHER, SELFPAY ==
[2018-02-05 09:24] VITALS: BMI 35.2
--- NOTE | 2019-09-30 10:11 | BI_ITS ---
MAMMOGRAPHY - BILATERAL SCREENING REASON FOR EXAM: Female, 59 years old. Routine annual screening examination. PERTINENT HISTORY: Non-contributory. TECHNIQUE: Digital bilateral breast radha (3D mammographic acquisition) in the CC and MLO projections. 2-D mediolateral oblique (MLO) and craniocaudad (CC) views of both breasts were obtained. CAD: Full Field Digital Mammography with Computer Added Detection was performed. COMPARISON: Comparison is made with prior examination dated 10/01/2017. FINDINGS: Breast Composition: There are scattered areas of fibroglandular density. There are no dominant masses or suspicious calcifications. Stable benign-appearing left axillary lymph nodes. No other significant abnormalities are identified. There has been no significant change since the prior study. BI/SCREEN MAMM (CAD) W/RADHA BILAT IMPRESSION: Stable bilateral screening mammogram. Yearly follow-up mammogram recommended. (A) ASSESSMENT CATEGORY: BIRADS Category 2: Benign. A letter regarding these results will be sent to the patient by the facility within 30 days. Approximately 10% of breast cancers are not detected by mammography. A normal mammogram should not delay biopsy of a clinically suspicious abnormality. [id number] Electronically Signed: Santos Mishra, at 10:58 EDT , Service support ,
== END ==
PROVIDERS: PCP Nurse Practitioner Family; Referring Provider Obstetrics & Gynecology; Visit Provider Obstetrics & Gynecology
DX: Z12.31 Encounter for screening mammogram for malignant neoplasm of breast (principal)
CPT/HCPCS: 77063; 77067

== ENCOUNTER → 2021-01-17 07:09 | Outpatient (CLI) | payer OTHER, SELFPAY ==
--- NOTE | 2021-01-17 07:12 | BI_ITS ---
MAMMOGRAPHY - BILATERAL SCREENING 3-D TOMOSYNTHESIS REASON FOR EXAM: Female, 60 years old. SCREENING PERTINENT HISTORY: No significant family history. TECHNIQUE: 2-D mammograms and 3-D Tomosynthesis of the breast (s) were performed. CAD was performed. COMPARISON: 10/10/2019 FINDINGS: The breast composition is almost entirely fat. Scattered benign calcifications are seen. No dense spiculated masses or suspicious microcalcifications are identified. No architectural distortion is identified. There is no skin thickening or retraction. There has been no significant change since the prior study. BI/SCRN MAMM (CAD)W/RADHA BILAT IMPRESSION: No mammographic signs of malignancy. Routine yearly mammograms recommended. ASSESSMENT CATEGORY: BIRADS Category 2: Benign. A letter regarding these results will be sent to the patient by the facility within 30 days. FOLLOW UP RECOMMENDATION: Yearly follow up mammogram recommended. (A) Approximately 10% of breast cancers are not detected by mammography. A normal mammogram should not delay biopsy of a clinically suspicious abnormality. Electronically Signed: Walker Tuttle MD at 10:29 EST , Service support ,
== END ==
PROVIDERS: PCP Nurse Practitioner Family; Visit Provider Nurse Practitioner Family
DX: Z12.31 Encounter for screening mammogram for malignant neoplasm of breast (principal)
CPT/HCPCS: 77063; 77067

== ENCOUNTER → 2021-01-17 07:40 | Outpatient (CLI) | payer OTHER, SELFPAY ==
[2021-01-17 09:03] LABS: Hematocrit 38.2 % (37-47); Hemoglobin 12.7 g/dL (12.0-15.0); Mean Corp Hgb Conc 33.2 g/dL (32-36); Mean Corpuscular Hgb 29.7 pg (27.0-32.0); Mean Corpuscular Volume 89.5 fL (81-99); Platelet Count 347 K/mm3 (150-450); RBC Distribution Width CV 13.2 % (11.6-14.6); RBC Distribution Width SD 43.5 fl (35.1-43.9); Red Blood Count 4.27 M/mm3 (4.2-5.4); White Blood Count 5.8 K/mm3 (4.4-11.0)
[2021-01-17 09:25] LABS: AST(SGOT) 21 U/L (15-37); Alanine Aminotransfer ALT/SGPT 21 U/L (13-56); Albumin, Serum 3.8 g/dL (3.2-5.0); Alkaline Phosphatase 64 U/L (45-117); Anion Gap 6 (5-15); BUN 14 mg/dL (7-18); BUN/Creat Ratio 12.4 RATIO (10-20); Chloride 103 mmol/L (98-107); Cholesterol 214 mg/dL (200); Creatinine, Serum 1.13 mg/dL (0.55-1.02); EST Glomerular Filtration Rate 52 mL/min (>60); Est Glom Filt Rate - Afr Amer 63 mL/min (>60); Globulin 3.8 g/dL (2.2-4.2); Glucose 85 mg/dL (74-106); High Density Lipoprotein 79 mg/dL; Potassium 3.9 mmol/L (3.5-5.1); Protein, Total 7.6 g/dL (6.4-8.2); Sodium Level 139 mmol/L (136-145); Triglycerides 93 mg/dL; Very Low Density Lipoprotein 19 mg/dL (5-40)
== END ==
PROVIDERS: PCP Nurse Practitioner Family; Visit Provider Nurse Practitioner Family
DX: Z00.00 Encounter for general adult medical examination without abnormal findings (principal); Z13.1 Encounter for screening for diabetes mellitus; Z13.6 Encounter for screening for cardiovascular disorders
CPT/HCPCS: 36415; 80053; 80061; 85027

== ENCOUNTER → 2021-09-10 | Outpatient (CLI) | payer OTHER, SELFPAY ==
[2021-09-10 08:22] LABS: Hematocrit 37.7 % (37-47); Hemoglobin 12.7 g/dL (12.0-15.0); Mean Corp Hgb Conc 33.7 g/dL (32-36); Mean Corpuscular Hgb 30.3 pg (27.0-32.0); Mean Platelet Vol. 10.1 fl (6.2-12.0); Platelet Count 333 K/mm3 (150-450); RBC Distribution Width CV 13.5 % (11.6-14.6); RBC Distribution Width SD 44.4 fl (35.1-43.9); Red Blood Count 4.19 M/mm3 (4.2-5.4); White Blood Count 6.4 K/mm3 (4.4-11.0)
[2021-09-10 09:06] LABS: ALB/GLOB Ratio 1.1 RATIO (0.9-2.4); AST(SGOT) 20 U/L (15-37); Alanine Aminotransfer ALT/SGPT 20 U/L (13-56); Albumin, Serum 3.7 g/dL (3.2-5.0); Alkaline Phosphatase 59 U/L (45-117); Anion Gap 5 (5-15); BUN 13 mg/dL (7-18); BUN/Creat Ratio 12.9 RATIO (10-20); Calcium,Total 9.6 mg/dL (8.5-10.1); Chloride 107 mmol/L (98-107); Cholesterol 197 mg/dL (200); Creatinine, Serum 1.01 mg/dL (0.55-1.02); EST Glomerular Filtration Rate 59 mL/min (>60); Est Glom Filt Rate - Afr Amer 72 mL/min (>60); Globulin 3.4 g/dL (2.2-4.2); Glucose 89 mg/dL (74-106); High Density Lipoprotein 75 mg/dL; Potassium 3.8 mmol/L (3.5-5.1); Protein, Total 7.1 g/dL (6.4-8.2); Sodium Level 140 mmol/L (136-145); Triglycerides 181 mg/dL; Very Low Density Lipoprotein 36 mg/dL (5-40)
[2021-09-10 09:21] LABS: Vitamin D,25 Hydroxy 33.6 ng/mL
== END | disposition home or self-care (01) ==
PROVIDERS: PCP Nurse Practitioner Family; Referring Provider Nurse Practitioner Family; Visit Provider Nurse Practitioner Family
DX: N18.30 Chronic kidney disease, stage 3 unspecified (principal); E78.5 Hyperlipidemia, unspecified; R63.8 Other symptoms and signs concerning food and fluid intake; E55.9 Vitamin D deficiency, unspecified
CPT/HCPCS: 36415; 80053; 80061; 82306; 85027

== ENCOUNTER → 2022-03-13 | Outpatient (CLI) | payer OTHER, SELFPAY ==
[2022-03-13 07:46] LABS: Hematocrit 37.3 % (37-47); Hemoglobin 12.3 g/dL (12.0-15.0); Mean Corpuscular Hgb 29.6 pg (27.0-32.0); Mean Corpuscular Volume 89.7 fL (81-99); Mean Platelet Vol. 9.6 fl (6.2-12.0); Platelet Count 367 K/mm3 (150-450); RBC Distribution Width SD 42.8 fl (35.1-43.9); Red Blood Count 4.16 M/mm3 (4.2-5.4); White Blood Count 6.7 K/mm3 (4.4-11.0)
[2022-03-13 08:12] LABS: ALB/GLOB Ratio 1.1 RATIO (0.9-2.4); AST(SGOT) 23 U/L (15-37); Alanine Aminotransfer ALT/SGPT 21 U/L (13-56); Alkaline Phosphatase 57 U/L (45-117); Anion Gap 6 (5-15); BUN 22 mg/dL (7-18); BUN/Creat Ratio 19.1 RATIO (10-20); Calcium,Total 10.1 mg/dL (8.5-10.1); Chloride 104 mmol/L (98-107); Cholesterol 219 mg/dL (200); Creatinine, Serum 1.15 mg/dL (0.55-1.02); EST Glomerular Filtration Rate 51 mL/min (>60); Est Glom Filt Rate - Afr Amer 62 mL/min (>60); Globulin 3.5 g/dL (2.2-4.2); Glucose 88 mg/dL (74-106); High Density Lipoprotein 87 mg/dL; Potassium 3.8 mmol/L (3.5-5.1); Protein, Total 7.5 g/dL (6.4-8.2); Sodium Level 138 mmol/L (136-145); Triglycerides 82 mg/dL; Very Low Density Lipoprotein 16 mg/dL (5-40)
[2022-03-13 08:42] LABS: Vitamin D,25 Hydroxy 33.4 ng/mL
== END | disposition home or self-care (01) ==
PROVIDERS: PCP Nurse Practitioner Family; Referring Provider Nurse Practitioner Family; Visit Provider Nurse Practitioner Family
DX: E78.5 Hyperlipidemia, unspecified (principal); N18.30 Chronic kidney disease, stage 3 unspecified; E55.9 Vitamin D deficiency, unspecified; F32.9 Major depressive disorder, single episode, unspecified; R63.8 Other symptoms and signs concerning food and fluid intake
CPT/HCPCS: 36415; 80053; 80061; 82306; 85027

== ENCOUNTER → 2022-04-11 | Outpatient (CLI) | payer OTHER, SELFPAY ==
--- NOTE | 2022-04-11 08:11 | BI_ITS ---
MAMMOGRAPHY - BILATERAL SCREENING REASON FOR EXAM: Female, 61 years old. Routine annual screening examination. PERTINENT HISTORY: Non-contributory. TECHNIQUE: Digital bilateral breast radha (3D mammographic acquisition) in the CC and MLO projections. 2-D mediolateral oblique (MLO) and craniocaudad (CC) views of both breasts were obtained. CAD: Full Field Digital Mammography with Computer Added Detection was performed. COMPARISON: Comparison is made with prior examination dated 01/17/2021 and 09/30/2019. FINDINGS: Breast Composition: There are scattered areas of fibroglandular density. There are no dominant masses or suspicious calcifications. Stable small benign-appearing bilateral axillary lymph nodes. No other significant abnormalities are identified. There has been no significant change since the prior study. BI/SCRN MAMM (CAD)W/RADHA BILAT IMPRESSION: Stable bilateral screening mammogram. Yearly follow-up mammogram recommended. (A) ASSESSMENT CATEGORY: BIRADS Category 2: Benign. A letter regarding these results will be sent to the patient by the facility within 30 days. Approximately 10% of breast cancers are not detected by mammography. A normal mammogram should not delay biopsy of a clinically suspicious abnormality. [id number] Electronically Signed: Santos Mishra MD at 9:09 EST ,
== END | disposition home or self-care (01) ==
LOC: OPBI 08:10
PROVIDERS: PCP Nurse Practitioner Family; Referring Provider Nurse Practitioner Family; Visit Provider Nurse Practitioner Family
DX: Z12.31 Encounter for screening mammogram for malignant neoplasm of breast (principal)
CPT/HCPCS: 77063; 77067

== ENCOUNTER → 2022-08-20 | Outpatient (CLI) | payer OTHER, SELFPAY ==
--- NOTE | 2022-08-20 12:47 | VDLE_ITS ---
Reason For Study: Rt Leg Pain RIGHT LEFT GSV is normal. CFV is compressible, spontaneous, phasic, CFV is compressible, spontaneous, phasic, competent, and demonstrates normal competent and demonstrates normal augmentation. augmentation. FV is compressible, spontaneous, phasic, competent and demonstrates normal augmentation. POP V is compressible, spontaneous, phasic, competent and demonstrates normal augmentation. T/P Trunk is compressible. PTV is compressible. RT PerV is compressible. Procedure This is a venous duplex using B-mode, color flow and spectral Doppler. Exam performed in department. The exam was diagnostic. A preliminary report was called and/or faxed to Becky Santos office. VL/Venous Duplex US, Unilateral Interpretation Summary Deep veins of the right lower extremity are patent and compressible segmentally . There is no evidence of right lower extremity deep vein thrombosis. Valvular competence marky ears intact within the proximal deep venous system on the right . The right great saphenous vein a ppears patent and compressible segmentally. The left common femoral vein is patent and compressib le . Ordering Physician: Becky Santos Referring Physician: Rk Adrian Performed By: Santana Lux RVT
--- NOTE | 2022-08-20 13:15 | RAD_ITS ---
INDICATION: RIGHT KNEE PAIN EXAMINATION/TECHNIQUE: X-RAY - RIGHT XR Knee Complete 4 Views COMPARISON: FINDINGS: SOFT TISSUES: No soft tissue swelling or gas. No radiopaque foreign body. BONES/JOINTS: No acute fracture or subluxation.. Normal alignment. Degenerative spurring and narrowing of the patellofemoral and lateral femorotibial compartments.. No sclerotic or destructive changes observed. RAD/Knee 4 or More Views IMPRESSION: Degenerative changes. Electronically Signed: Vmasi Vogt DO at 15:32 EDT ,
== END | disposition home or self-care (01) ==
LOC: CVS 12:45
PROVIDERS: PCP Nurse Practitioner Family; Referring Provider Nurse Practitioner Primary Care; Visit Provider Nurse Practitioner Primary Care
DX: M79.604 Pain in right leg (principal)
CPT/HCPCS: 73564; 93971

== ENCOUNTER → 2023-04-07 | Outpatient (CLI) | payer OTHER, SELFPAY ==
--- OUTSIDE RECORDS SUMMARY | 2023-04-07 07:49 | XMS RPT_ITS | CCD ---
Author Name Unknown Address [address] [place] [address] Organization [facility] Care Team Providers Care Asset Management Lead Name Role Phone Unavailable Primary Care Provider UnavailRk Najera Primary Care Provider LACEY MENDOZA Admitting Unavailable LACEY MENDOZA Attending Unavailable DEMI, RK Primary Care Unavailable LACEY MENDOZA Referring Unavailable DEMI, RK Primary Care Unavailable LACEY MENDOZA Attending Unavailable CHIQUITA NICHOLE Referring Unavailable DEMI, RK Primary Care Unavailable AUSTIN DORAN Attending Unavailable DEMI, RK Primary Care Unavailable LACEY MENDOZA Attending Unavailable RK ADRIAN Primary Care Unavailable AUSTIN DORAN Referring Unavailable DEMI, RK Primary Care Unavailable KAZAINABLERAUSTIN Referring Unavailable DEMI, RK Primary Care Unavailable KAAUSTIN CORLEY Referring Unavailable DEMI, RK Primary Care Unavailable LACEY MENDOZA Attending Unavailable DEMI, RK Primary Care Unavailable KAAUSTIN CORLEY Attending Unavailable DEMI, RK Primary Care Unavailable Allergies Allergy Classification Reported Allergen(s) Allergy Type Date of Onset Reaction(s) Facility (8 sources) Erythromycin Drug Allergy 02-05-2018 Other [facility] (8 sources) Lincomycin Drug Allergy 02-05-2018 Other [facility] Medications Current Medications Medication Drug Class(es) Dates Sig (Normalized) Sig (Original) acetaminophen 325 mg / oxyCODONE hydrochloride 5 mg oral tablet (3 sources) Opioid Agonist Start: 11-07-2022 End: 11-14-2022 take 1 tablet by mouth every six hours as needed for pain oxyCODONE-acetamino phen (Percocet) 5-325 MG tablet Indications: Posterior tibial tendon dysfunction, right Take 1 tablet by mouth every 6 hours as needed for severe pain (7-10) for up to 7 days. 28 tablet 0 11/07/2022 11/14/2022 Active aspirin 81 mg delayed release oral tablet (4 sources) Platelet Aggregation Inhibitor, Nonsteroidal Anti-inflammatory Drug Start: 11-07-2022 End: 12-07-2022 take 1 tablet by mouth every twelve hours aspirin 81 MG EC tablet Indications: DVT prophylaxis after surgery Take 1 tablet (81 mg) by mouth in the morning and 1 tablet (81 mg) in the evening. 60 tablet 0 11/07/2022 12/07/2022 Active docosahexaenoic acid 120 mg / eicosapentaenoic acid 180 mg oral capsule (6 sources) take 1 capsule by mouth once daily omega-3 (Fish Oil) 1000 MG capsule Take 1,000 mg by mouth daily. 0 Active docusate sodium 100 mg oral capsule (3 sources) Start: 11-07-2022 End: 11-17-2022 take 1 capsule by mouth twice daily docusate sodium (Colace) 100 MG capsule Indications: Posterior tibial tendon dysfunction, right Take 1 capsule (100 mg) by mouth 2 times daily for 10 days. 20 capsule 0 11/07/2022 11/17/2022 Active ergocalciferol 1.25 mg oral capsule (3 sources) Provitamin D2 Compound Start: 11-07-2022 End: 11-29-2022 take 1 capsule by mouth every week ergocalciferol (Vitamin D2) 1.25 MG (24873 UT) capsule Indications: Posterior tibial tendon dysfunction, right Take 1 capsule (1.25 mg) by mouth 1 (one) time per week for 4 doses. 4 capsule 0 11/07/2022 11/29/2022 Active ondansetron 4 mg disintegrating oral tablet (4 sources) Serotonin-3 Receptor Antagonist Start: 11-07-2022 End: 11-14-2022 take 1 tablet by mouth every eight hours as needed for nausea and nausea, then take 1 tablet by mouth every eight hours as needed for nausea and nausea ondansetron ODT (Zofran-ODT) 4 MG disintegrating tablet Indications: Postoperative Nausea and Vomiting Take 1 tablet (4 mg) by mouth every 8 hours as needed for nausea or vomiting for up to 7 days. Take 1 tablet by mouth once every 8 hours as needed for nausea. 21 tablet 0 11/07/2022 11/14/2022 Active Completed/Discontinued Medications Medication Drug Class(es) Dates Sig (Normalized) Sig (Original) acetaminophen 500 mg oral tablet (1 source) Start: 11-07-2022 End: 11-07-2022 acetaminophen (Tylenol) tablet 1,000 mg calcium chloride 0.0014 meq/ml / potassium chloride 0.004 meq/ml / sodium chloride 0.103 meq/ml / sodium lactate 0.028 meq/ml injectable solution (2 sources) Start: 11-07-2022 End: 11-07-2022 lactated ringers infusion dexAMETHasone-bupivac dara-epinephrine (TAP) syringe 10 mL (1 source) Start: 11-07-2022 End: 11-07-2022 dexAMETHasone-bupiva lexi-epinephrine (TAP) syringe 10 mL dexAMETHasone-bupivac dara-epinephrine (TAP) syringe 30 mL (1 source) Start: 11-07-2022 End: 11-07-2022 dexAMETHasone-bupiva lexi-epinephrine (TAP) syringe 30 mL 1 ml diphenhydrAMINE hydrochloride 50 mg/ml cartridge (1 source) Histamine-1 Receptor Antagonist Start: 11-07-2022 End: 11-07-2022 diphenhydrAMINE (BENADryl) injection 12.5 mg famotidine 20 mg oral tablet (1 source) Histamine-2 Receptor Antagonist Start: 11-07-2022 End: 11-07-2022 famotidine (Pepcid) tablet 20 mg 2 ml fentaNYL 0.05 mg/ml injection (1 source) Opioid Agonist Start: 11-07-2022 End: 11-07-2022 fentaNYL (Sublimaze) injection 100 mcg 1 ml HYDROmorphone hydrochloride 1 mg/ml cartridge (2 sources) Opioid Agonist Start: 11-07-2022 End: 11-07-2022 HYDROmorphone (Dilaudid) injection 0.5 mg Problems Active Problems Problem Classification Problem Date Documented Da te Episodic/Chronic Other connective tissue disease (1 source) Pain in both feet; Translations: [Pain in right foot] 10-04-2022 Episodic Other connective tissue disease (5 sources) Dysfunction of posterior tibial tendon of right foot; Translations: [Posterior tibial tendinitis, right leg] 11-07-2022 Episodic Other connective tissue disease (2 sources) Posterior tibial tendinitis, right leg; Translations: [Posterior tibial tendinitis, right leg] Onset: 11-07-2022 Episodic Unclassified (2 sources) Post-op; Translations: [Post-op] Onset: 01-29-2023 Past or Other Problems Problem Classification Problem Date Documented Da te Episodic/Chronic Other connective tissue disease (2 sources) Pain in right foot; Translations: [Pain in right foot] Onset: 10-09-2022 Episodic Other connective tissue disease (2 sources) Pain in left foot; Translations: [Pain in left foot] Onset: 10-09-2022 Episodic Results Test Name Value Interpretation Reference Range Facil ity Vital Signs Date Time Vital Sign Value Performing Clinician Faci lity 01-29-2023 13:53-0500 Diastolic blood pressure 90 mm[Hg] Lacey Mendoza MD Work Phone: [employer] 01-29-2023 13:53-0500 Heart rate 93 /min Lacey Mendoza MD Work Phone: [employer] 01-29-2023 13:53-0500 Systolic blood pressure 138 mm[Hg] Lacey Mendoza MD Work Phone: [email or web address] 12-18-2022 14:44-0400 Body height 162.6 cm Austin PETER Work Phone: [employer] 12-18-2022 14:44-0400 Body mass index (BMI) [Ratio] 35.87 kg/m2 Austin PETER Work Phone: [employer] 12-18-2022 14:44-0400 Body weight 94.8 kg Austin PETER Work Phone: [employer] 11-07-2022 11:45-0400 Body temperature 97.11 [degF] Lacey Mendoza MD Work Phone: [email or web address] 11-07-2022 11:45-0400 Diastolic blood pressure 78 mm[Hg] Lacey Mendoza MD Work Phone: [email or web address] 11-07-2022 11:45-0400 Heart rate 74 /min Lacey Mendoza MD Work Phone: [facility] 11-07-2022 11:45-0400 Respiratory rate 16 /min Lacey Mendoza MD Work Phone: [facility] 11-07-2022 11:45-0400 SaO2% (BldA) [Mass fraction] 98 % Lacey Mendoza MD Work Phone: [facility] 11-07-2022 11:45-0400 Systolic blood pressure 122 mm[Hg] Lacey Mendoza MD Work Phone: [facility] 11-07-2022 06:28-0400 Body height 162.6 cm Lacey Mendoza MD Work Phone: [facility] 11-07-2022 06:28-0400 Body mass index (BMI) [Ratio] 35.87 kg/m2 Lacey Mendoza MD Work Phone: [facility] 11-07-2022 06:28-0400 Body weight 94.8 kg Lacey Mendoza MD Work Phone: [facility] Encounters Encounter Date Encounter Type Care Provider Facility Start: 01-29-2023 End: 01-29-2023 [facility] Start: 01-29-2023 End: 01-29-2023 Postop follow up visit related to original px Lacey Mendoza MD Work Phone: [facility] Procedures Date Procedure Procedure Detail Performing Clinician Start: 11-07-2022 FL GUIDANCE OR USE O NLY - NON-RESULTABLE Lacey Mendoza MD Work Phone: Plan of Treatment Date Care Activity Detail Author Start: 01-29-2023 End: 01-29-2023 Patient encounter procedure 01/29/2023 2:00 PM EST Office Visit [facility] [address] [place] [address] Lacey Mendoza MD [address] [place] [address] [facility] Start: 01-29-2023 End: 12-21-2023 XR Foot - right 3 Views XR foot 3+ views right Imaging Routine Posterior tibial tendon dysfunction (PTTD) of right lower extremity Expected: 01/29/2023, Expires: 12/21/2023 [facility] Work Phone: Immunizations Immunization Date Immunization Notes Care Provider Fa cility 12-22-2020 influenza virus vacc ine, unspecified formulation Austin PETER Work Phone: [facility] Payers Date Payer Category Payer Unknown [employer] [facility] [id number] 2022-Present [address] [place] [address] Commercial [id number] 2022 Unknown [id number] Social History Date Type Detail Facility Tobacco smoking stat [facility] Tobacco smoking consumption unknown [facility] Start: 1960 Sex Assigned At Not on file [facility] Start: 10-09-2022 End: 11-07-2022 Gender identity Not on file [facility] Start: 10-09-2022 Tobacco smoking stat [facility] Never smoked tobacco [facility] Start: 10-09-2022 Tobacco use and exposure Smokeless t obacco non-user [facility] Start: 10-09-2022 End: 11-07-2022 History of Social function [facility] Start: 11-07-2022 Alcohol intake Ex-drinker (finding) [facility] Start: 10-28-2022 End: 11-07-2022 Exposure to SARS-CoV-2 (event) Not sure [facility] Medical Equipment Procedure Code Equipment Code Equipment Origin al Text Equipment Identifier Dates Graft Bn Osteoce l Plus 5cc - [id number] - [id number] Start: 11-07-2022 Plate X Va-Lock 2.4/2.7mm - [id number] Start: 11-07-2022 Screw Lck Va 2.9k21c-N T8 Rcs - [id number] Start: 11-07-2022 Clinical Notes 10-09-2022 to 01-29-2023 Lacey Mendoza MD - 01/29/2023 2:00 PM ROME Avila - 12/18/2022 3:00 PM EDTPerioperative Nursing Note - Lisa Johnson RN - 11/07/2022 12:00 PM EDTDischarge InstructionsDischarge Instr - Diet Note Date & Type Note Facility 01-29-2023 History of Presen t illness Narrative Images from the original note were not included. [facility] [address] [place] [address] [place] [phone] Dept: [phone] Dept Harriett Dueñas 1960 [id number] 01/29/2023 HISTORY OF PRESENT ILLNESS: Harriett is here for her 3 month(s) postoperative visit s/p Right foot triple arthrodesis, #2 Right Achilles triple cut tendon lengthening. Her surgery was on 11/07/22 Harriett reports that her pain has been minimal Harriett reports that her swelling has decreased since the last visit Harriett had been instructed to be weight bearing as tolerated on the right lower extremity. Harriett has been compliant with her weight bearing restrictions Harriett decided not to go to therapy Harriett denies fevers and chills and has not had calf pain or shortness of breath In general Harriett feels that she has been doing well since the surgery Other issues or concerns that Harriett would like addressed at this visit: she has no other issues or concerns to discuss Review of Systems PAST MEDICAL HISTORY: Past Medical History: Diagnosis Date Arthritis Depression remote Migraines Posterior tibial tendinitis of right leg SCHEDULED FOR THE SURGERY ON11/07/22 Allergies Allergen Reactions Erythromycin Other Lincomycin Other PHYSICAL EXAM: This is an age appropriate appearing female who is alert and oriented x 3. The patient appears well nourished. The patient is able to verbalize normally and seems to have a good understanding of her situation. Normocephalic and atraumatic Respiratory: No shortness of breath The right lower extremity is examined. Skin: ruborous in a dependent position Lymphatic: Minimal swelling of the midfoot and forefoot Vascular: Capillary refill in the foot/toes is brisk Neurologic: Sensation is intact except over the surgical incision site(s) Musculoskeletal: The calf is nontender to palpation. The patient is able to actively move the ankle/foot/toes The incisions are healed and benign Tenderness: no areas of tenderness on exam Gait: Near normal ambulation RADIOGRAPHIC INTERPRETATION: 3 weight bearing views of the right foot were obtained and the following is my interpretation of the findings present of the X-rays: continued bone healing noted of the fusion sites of the calcaneocuboid, subtalar, and talonavicular joints. Intact orthopedic hardware noted with no signs of loosening or failure. REVIEW OF RELATED PREVIOUS DOCUMENTATION: No documents related to the current problem(s) were reviewed or no documents were available for review. LABORATORY RESULT INTERPRETATION: No labs were reviewed/No labs available for review DIAGNOSIS: Diagnosis Plan 1. Posterior tibial tendon dysfunction (PTTD) of right lower extremity MEDICAL DECISION MAKING: I had a discussion with Harriett to make sure she has a good understanding of the diagnoses/issues that I think are present today and understands the plan moving forward. Harriett is doing well overall. We discussed the plan moving forward. Harriett will be seen back only if she has any issues, problems or concerns. We discussed possible reasons she might need to be seen in the future and she understands she is to call if he has an issue. As long as she is doing well he can follow-up on an as needed basis. Elevation Instructions: Harriett can have the foot/ankle down in a dependent position for as long as it is comfortable and should elevate if the foot/ankle becomes uncomfortable. Dressing instructions: Not applicable Shoe/Boot Instructions: Harriett can now use a regular shoe. I want Harriett to start transitioning from her aircast boot to a good supportive shoe. I want Harriett to start by trying to walk in their shoe for one hour today and increase her shoe wear by one hour per day until she is able to spend a whole day in the shoe without pain. I instructed Harriett to put the aircast boot back on if she starts to have increasing pain or swelling that is uncomfortable. I want Harriett to start with a good stable shoe that will allow for swelling if present. If she is having trouble making the transition from the aircast boot to a shoe over the next few weeks then I want Harriett to call me. Weight Bearing Instructions: Harriett was instructed to be weight bearing as tolerated on the right lower extremity in her regular shoe. If Harriett has any problems maintaining this weight bearing status she was instructed to call me so that appropriate instructions can be given. Medications: No medication prescriptions were given/sent at today's visit. Xray at next visit: No xrays needed at next visit Follow up if symptoms worsen or fail to improve. Electronically signed by Lacey Mendoza MD [facility] Department of Orthopedic surgery 01/29/2023 4:22 PM Voice recognition was used for portions of this note and although it was reviewed prior to signing some incorrect words or phrases could be present. documented in this encounter [facility] 12-18-2022 History of Presen t illness Narrative Images from the original note were not included. [facility] [address] [place] [address] [place] [phone] Dept: [phone] Dept Harriett [facility] 1960 [id number] 12/18/2022 HISTORY OF PRESENT ILLNESS: Harriett is here for her 6 week(s) postoperative visit s/p Right foot triple arthrodesis, #2 Right Achilles triple cut tendon lengthening DOS 11/07/2022. Harriett reports that her pain has been minimal Harriett reports that her swelling has decreased since the last visit Harriett had been instructed to be nonweight bearing on the right lower extremity. Harriett has been compliant with her weight bearing restrictions Harriett has not started therapy yet Harriett denies fevers and chills and has not had calf pain or shortness of breath In general Harriett feels that she is doing better than the her last visit Other issues or concerns that Harriett would like addressed at this visit: she has no other issues or concerns to discuss Review of Systems PAST MEDICAL HISTORY: Past Medical History: Diagnosis Date Arthritis Depression remote Migraines Posterior tibial tendinitis of right leg SCHEDULED FOR THE SURGERY ON11/07/22 Allergies Allergen Reactions Erythromycin Other Lincomycin Other PHYSICAL EXAM: This is an age appropriate appearing female who is alert and oriented x 3. The patient appears well nourished. The patient is able to verbalize normally and seems to have a good understanding of her situation. Normocephalic and atraumatic Respiratory: No shortness of breath The right lower extremity is examined. Skin: ruborous in a dependent position Lymphatic: Minimal swelling of the midfoot and forefoot Vascular: Capillary refill in the foot/toes is brisk Neurologic: Sensation is intact except over the surgical incision site(s) Musculoskeletal: The calf is nontender to palpation. The patient is able to actively move the ankle/foot/toes The incisions are healed and benign Tenderness: mild heel tenderness Gait: Gait not evaluated RADIOGRAPHIC INTERPRETATION: 3 nonweightbearing views of the Right foot were obtained and the following is my interpretation of the findings present of the X-rays: intact orthopedic hardware noted with no signs of loosening or failure. Interval bone healing noted at the fusions of the talonavicular, calcaneocuboid, and subtalar joints. REVIEW OF RELATED PREVIOUS DOCUMENTATION: No documents related to the current problem(s) were reviewed or no documents were available for review. LABORATORY RESULT INTERPRETATION: No labs were reviewed/No labs available for review DIAGNOSIS: Diagnosis Plan 1. Posterior tibial tendon dysfunction (PTTD) of right lower extremity MEDICAL DECISION MAKING: I had a discussion with Harriett to make sure she has a good understanding of the diagnoses/issues that I think are present today and understands the plan moving forward. Harriett is doing well overall. We discussed the plan moving forward. Harriett will be seen back in 6 weeks. Elevation Instructions: Harriett can have the foot/ankle down in a dependent position for as long as it is comfortable and should elevate if the foot/ankle becomes uncomfortable. Dressing instructions: Not applicable Shoe/Boot Instructions: Harriett will stay in the boot she already has.. Harriett can remove her boot for sleep, for bathing, anytime they are sitting or laying down and for ROM exercises which were discussed and demonstrated today. Weight Bearing Instructions: Harriett was instructed to be weight bearing as tolerated on the right lower extremity in the aircast boot. If Harriett has any problems maintaining this weight bearing status she was instructed to call me so that appropriate instructions can be given. We offered Harriett a physical therapy script but she would like to see how she does on her own at first and will call if she feels she would like to try therapy. Medications: No medication prescriptions were given/sent at today's visit. Xray at next visit: 3 weight bearing views of the Right foot Follow up in about 6 weeks (around 01/29/2023) for Visit with Imaging, Post-Op. Electronically signed by ROME Roberto [facility] Department of Orthopedic surgery 12/18/2022 4:35 PM Voice recognition was used for portions of this note and although it was reviewed prior to signing some incorrect words or phrases could be present. documented in this encounter [facility] 11-07-2022 Note Patient: Harriett hess Procedure Summary Date: 11/07/22 Room / Location: [address] Operating Room Anesthesia Start: 805 Anesthesia Stop: 1106 Procedures: RIGHT TRIPLE ARTHRODESIS AND ACHILLES TENDON LENGTHENING (Right: Foot) LENGTHENING OR SHORTENING OF TENDON LEG OR ANKLE (Right: Leg Lower) Diagnosis: Posterior tibial tendinitis, right leg (Posterior tibial tendinitis, right leg [M76.821]) Surgeons: Lacey Mendoza MD Responsible Provider: Scott Thibodeaux Jr., MD Anesthesia Type: general, regional ASA Status: 2 Anesthesia Type: general, regional Vitals Value Taken Time BP 107/70 11/07/22 1108 Temp 97 11/07/22 1108 Pulse 83 11/07/22 1108 Resp 10 11/07/22 1108 SpO2 93 11/07/22 1108 Anesthesia Post Evaluation Patient location during evaluation: PACU Patient participation: complete - patient cannot participate Level of consciousness: sleepy but conscious and responsive to verbal stimuli Pain management: satisfactory to patient Airway patency: patent Dental Injury: no Cardiovascular status: acceptable, blood pressure returned to baseline and hemodynamically stable Respiratory status: acceptable, spontaneous ventilation and nonlabored ventilation Hydration status: euvolemic Nausea/Vomiting: controlled No notable events documented. Patient can be discharged once all PACU criteria has been met. [facility] 11-07-2022 Note Patient: Harriett hess Procedure Summary Date: 11/07/22 Room / Location: [address] Operating Room Anesthesia Start: 805 Anesthesia Stop: 1107 Procedures: RIGHT TRIPLE ARTHRODESIS AND ACHILLES TENDON LENGTHENING (Right: Foot) LENGTHENING OR SHORTENING OF TENDON LEG OR ANKLE (Right: Leg Lower) Diagnosis: Posterior tibial tendinitis, right leg (Posterior tibial tendinitis, right leg [M76.821]) Surgeons: Lacey Mendoza MD Responsible Provider: Scott Thibodeaux Jr., MD Anesthesia Type: general, regional ASA Status: 2 Anesthesia Type: general, regional Vitals Value Taken Time BP 107/70 11/07/22 1107 Temp 97 11/07/22 1107 Pulse 83 11/07/22 1107 Resp 10 11/07/22 1107 SpO2 93 11/07/22 1107 Anesthesia Post Evaluation Patient location during evaluation: PACU Patient participation: complete - patient cannot participate Level of consciousness: sleepy but conscious and responsive to verbal stimuli Pain management: satisfactory to patient Multimodal analgesia pain management approach Airway patency: patent Two or more strategies used to mitigate risk of obstructive sleep apnea Cardiovascular status: acceptable and hemodynamically stable Respiratory status: acceptable, nonlabored ventilation and spontaneous ventilation Hydration status: acceptable No notable events documented. MIPS #[phone] PONV Patient received an inhalational anesthetic (4554F) Patient exhibits three or more risk factors for PONV (4556F) Patient received at leaset 2 prophylactic Rx PONV anti-emtic agents of different classes preop and/or intraop (G9775) MIPS # 424 Perioperative Temperature Management Anesthesia time was 60 minutes or longer (4255F) Anesthesai administered was General (inhalational or TIVA) or Neuraxial block (X0424) At least one body temperature greater than 95.8F/35.5C achieved within the 30 mins immediately prior to or the 15 minutes immediately following anesthesia end time (G9771) MIPS #477 Multimodal Pain Management Not emergent case Patient was administered multimodal pain management (two or more drugs and/or interventions excluding systemic opioids) in the periopeartive period occurring at some time between 6 hours prior to anesthesia start time until discharged from PACU (G2148) MIPS #404 Anesthesiology Smoking Abstinence The patient is not a current smoker (e.g. cigarette, cigar, pipe, e-cigarette/vaping/marijuana) If no stop here (G9644) I completed my handoff to the receiving clinician during which we: 1. Identified the patient 2. Identified the responsible provider 3. Reviewed the pertinent medical history 4. Discussed the surgical course 5. Reviewed intra-op anesthesia management and issues during anesthesia 6. Set expectations for post-procedure period 7. Allowed opportunity for questions and acknowledgement of understanding. [facility] 11-07-2022 Miscellaneous Notes Written discharge instructions reviewed with pt mom and brother. Questions answered. Assisted into wheelchair to use restroom. Able to maintain non weight bearing. Provided with crutches has knee scooter at home and ramp. Crutches adjusted to height and measured. States she has walker and has been practicing. Received pt from OR to recovery phase 1 arouses easily to name and denies pain is able to move toes and lift leg off bed. Belongings retrieved from [employer]. Pre-operative Diagnosis: Right posterior tibial tendon rupture Post-operative Diagnosis: Same Procedure: #1 Right foot triple arthrodesis, #2 Right Achilles triple cut tendon lengthening Components used: Synthes Anesthesia: General + Regional Surgeon: Reji Assistants: Lori Zimmer Estimated Blood Loss: 100ml Complications: None Specimens: No Medications: Ancef 2 g IV and TXA 1 g IV Operative findings: At the conclusion of the case the hindfoot was in 5 of valgus, the foot was in a plantigrade position based on simulated weightbearing on a flat plate intraoperatively and full dorsiflexion of the ankle with the hindfoot in the corrected position was achieved. History of present illness: Harriett is a 62 y.o. female with Right posterior tibial tendon rupture who had failed all attempts at nonoperative treatment. Because of continued problems despite nonoperative care Harriett wish to undergo surgical intervention. Despite the risks of the above mentioned operative procedure Harriett wish to proceed. Operative report: I met with Harriett in the preoperative area prior to the procedure and discussed the surgical plan once again and answered all of her questions related to the procedure and the expected post-operative course. The risks of surgery were discussed including but not limited to the risks of medications given for surgery, the risk of blood loss during and after surgery that can lead to the need for blood products in certain situations, infection, damage to normal structures that can lead to terminal makeup operator problems of pain or dysfunction, wound healing complications, the possibility of nonunion, malunion and late or chronic pain were also discussed. In addition potentially life threatening complications at the time of surgery and after surgery were discussed including but not limited to deep vein thrombosis, pulmonary embolism, myocardial infarction, stroke and . I initialed her Right lower extremity and signed her consent form. Harriett was then taken for a popliteal block by the anesthesia staff. Harriett was then brought to the operating room and placed in the supine position on the Operating Room table. Care was taken to identify and pad all bony prominences. A general anesthetic was then given by the anesthesia staff and an endotracheal tube was placed by the anesthesia staff. At all times during the operative procedure the patient's head neck and airway were protected by the anesthesia staff. A tourniquet was applied to the proximal thigh over cast padding. Total tourniquet time was less than 2 hours. The Right lower extremity was then prepped and draped in the usual orthopedic sterile fashion. A surgical timeout was then performed with the patient's identification, the procedure to be performed being reviewed with the consent form, verification that the patient had received preoperative antibiotics, and verification of the correct surgical side. Everyone in the operating room stopped what they were doing in order to participate in the timeout. This timeout was performed by myself, the circulating room nurse and the anesthesia staff. The patient's ASA was verified by the nurse [employer] launch commander and the anesthesia staff. Fire risk was assessed. The Right lower extremity was then exanguinated using an Esmarch bandage and the tourniquet was inflated. Right ankle dorsiflexion was assessed with the knee in extension and flexion. 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 After tourniquet inflation a triple cut Achilles tendon lengthening was performed with 2 medial sided incisions and one lateral sided. Each incision was percutaneous and 1/3-1/2 of the tendon was released at each percutaneous incision site. The first incision was 1 cm proximal to the posterior calcaneal tuberosity on the medial side followed by a lateral incision 1 cm proximal followed by a medial incision 1 cm proximal to the lateral incision. Once released the ankle was brought into maximal dorsiflexion with the knee extended and the tendon was lengthened. Dorsiflexion past neutral was now possible with the knee extended signifying correction of the contracture and adequate lengthening of the Achilles tendon. Palpation was performed and a continuous tendinous structure was noted throughout the course of the Achilles. A tarsal sinus incision was then made from the tip of the lateral malleolus extending towards the base of the fourth metatarsal. Skin and subcutaneous tissues were divided with care taken to protect branches of the superficial peroneal and sural nerves. Any crossing vessels were cauterized. The wound was deepened down to the level of the interval between the peroneus brevis tendon and the inferior edge of the extensor digitorum brevis. Just above this interval the tarsal sinus was approached. The fat of the tarsal sinus was elevated in a dorsal direction. The joint capsule of the subtalar joint was incised. This gave us good visualization of the anterior, middle and posterior facets of the subtalar joint. More distally the calcaneocuboid joint was exposed with further dorsal elevation of the extensor digitorum brevis. The joint capsule of the calcaneocuboid joint was incised allowing for visualization of the opposing surfaces of the calcaneocuboid joint. A lamina nc manager was placed both in the subtalar joint and the calcaneocuboid joint to help visualize the entirety of both joints. The above findings were noted once the exposure was completed. At this point stepwise debridement of any remaining articular cartilage was performed using a combination of osteotomes, ronguers and curettes. This was performed on both sides of the subtalar joint at each facet location. Once adequate debridement had been performed of the entirety of the joint surface a quarter inch osteotome was used to scale of the opposing bony surfaces. This was performed to increase the surface area for fusion and to promote vascular channel ingrowth. In similar fashion the calcaneocuboid joint was prepared removing all articular cartilage with a combination of curettes and osteotomes. Insert locations A high-speed bur was also utilized were curettes and osteotomes were ineffective. Both sides of the calcaneocuboid joint were then scaled using a quarter-inch osteotome to increase the surface area for fusion and to create areas for vascular channel ingrowth. Attention then turned to the medial aspect of the hindfoot overlying the talonavicular joint. A longitudinal incision was placed midway between the anterior tibial tendon and the posterior tibial tendon overlying the talonavicular joint medially. The skin and subcutaneous tissues were divided any crossing vessels from the saphenous system were cauterized. The wound was deepened down to level of the talonavicular joint capsule. The joint capsule was incised longitudinally and elevated dorsally and plantarly. The posterior tibial tendon attachment was noted as was the posterior tibial tendon and it was left intact. Once adequate visualization of the joint was achieved the articular cartilage that was still present and portions of the joint was removed. The cartilage was removed using a combination of curettes, rongeurs and osteotomes. Once all articular cartilage had been removed from both the talar head and the opposing navicular surface both opposing bony surfaces were scaled using a quarter inch osteotome. The scaling was performed to increase the surface area for fusion and to provide areas for vascular channel ingrowth. Once the subtalar, calcaneocuboid and talonavicular joints were fully prepared for fusion the subtalar joint was placed in 5 of valgus and the talonavicular joint and calcaneocuboid joints were positioned such that the talar head was completely covered by the navicular and the foot was in a plantar grade position. Holding this position a guidepin was placed in the distal aspect of the navicular medially and advanced through the talonavicular joint and into the talar head and neck region. Fluoroscopic images were obtained to ensure proper position of the the talonavicular joint for fusion and of the pin on AP, oblique and lateral views of the foot and ankle. Simulated weightbearing on a flat plate was performed to ensure that the foot was in a plantar grade position. Verification was made that the hindfoot was now in 5 of valgus. A guidepin for a 7 mm cannulated maxtorque screw was then placed under fluoroscopic guidance through the plantar posterior aspect of the posterior tuberosity of the calcaneus across the subtalar joint and ending in the talar body and dome. Location of this guide pin was verified on fluoroscopic imaging of the foot and ankle to ensure that it crossed the subtalar joint at the correct angle and was fully within the talus on the AP views of the foot and ankle. Once adequate pin placement had been achieved an incision was made in the skin at the level of the heel. A depth gauge was used to measure the pin and the pin was then drilled with a cannulated drill and the correct length 7 mm cannulated maxtorque screw was placed and fully seated. Excellent compression across the subtalar joint was achieved. Fluoroscopic imaging was obtained in AP, oblique and lateral planes of the foot and ankle to ensure proper position of the screw, compression of the subtalar joint and to ensure that the screw did not penetrate the ankle joint. Once verification was made a second pin for a 4.5 mm headless compression screw was placed across the talonavicular joint and fluoroscopic images were again obtained of the ankle and foot in the above-mentioned planes to ensure proper position of the second pin. The initial pin was then measured and drilled the appropriate depth and the appropriate length 4.5 mm headless compression screw was placed with care taken to keep all the threads of the screw on the talar side of the fusion so that adequate compression across the fusion surface could be obtained. Once the first screw was fully seated the second guidepin was measured and drilled the appropriate depth and the appropriate length screw was placed so that 2 screws crossed the talonavicular joint. An additional 4.5 mm screw was placed from the lateral portion of the tarsal navicular into the talar head/neck to compress the lateral half of the talar navicular joint. This screw was placed after first placing a percutaneous guide pin over the dorsal lateral midfoot, checking placement of the pin on fluoroscopic images, making an incision at the pin-skin interface, measuring the pin, drilling and then placing the appropriate length screw. Additional fluoroscopic images were then obtained in AP, oblique and lateral planes of both the foot and the ankle to ensure proper position of the hardware and of the talonavicular fusion itself. At this point the calcaneocuboid joint was then compressed utilizing a Synthes compression plate. A Synthes midfoot compression plate was placed across the calcaneocuboid joint. All of wires were placed through the plate holding it in the correct orientation. Once I was satisfied with placement of the plate the compression clamp was placed on all the wires and compression across the calcaneocuboid joint was achieved. 2.7 mm locking screws were placed through the plate into both the calcaneus and the cuboid after appropriate drilling and measuring. The plate held the compression achieved with a compression clamp. Right ankle dorsiflexion was assessed with the knee in extension and flexion. 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 A triple cut Achilles tendon lengthening was performed with 2 medial sided incisions and one lateral sided. Each incision was percutaneous and 1/3-1/2 of the tendon was released at each percutaneous incision site. The first incision was 1 cm proximal to the posterior calcaneal tuberosity on the medial side followed by a lateral incision 1 cm proximal followed by a medial incision 1 cm proximal to the lateral incision. Once released the ankle was brought into maximal dorsiflexion with the knee extended and the tendon was lengthened. Dorsiflexion past neutral was now possible with the knee extended signifying correction of the contracture and adequate lengthening of the Achilles tendon. Palpation was performed and a continuous tendinous structure was noted throughout the course of the Achilles. A flat plate was then placed on the plantar aspect of the foot and dorsiflexion of the ankle was performed. It was noted with simulated weightbearing on the flat plate that the foot was in a plantar grade position, the hindfoot was in approximately 5 of valgus and oriental orthodox of the longitudinal arch height was present. Final fluoroscopic images were then obtained in AP, oblique and lateral planes of the foot and ankle to ensure proper position of the fusion and of the hardware. The foot was rechecked to ensure that the hindfoot was in the correct position of 5 of valgus. Once verified the incision sites were thoroughly irrigated copious amounts of sterile saline. The tourniquet was then released and any active bleeding was controlled using Bovie cautery. The wounds were thoroughly irrigated with copious amounts of sterile saline. The subcutaneous tissues were then closed utilizing 2-0 Vicryl. The skin was then closed utilizing 4-0 Monocryl in a subcuticular type running stitch. Dermabond was then applied to the incision(s) and allowed to dry. Dry sterile dressings were then applied and a well-padded posterior splint with the ankle in neutral dorsiflexion was placed. Harriett was then awakened from her anesthetic, transferred to her hospital bed and taken to the recovery room in stable medical condition. Post-operative plan: Harriett will follow-up in 2 weeks for her first post-operative check. her incision(s) was/were closed with buried suture and she will not need sutures removed At the first post-operative visit Harriett will will be placed in a tall Aircast boot and will be allowed to remove the boot for sleep, for bathing and for ROM of the foot and ankle. Harriett will be instructed to be nonweight bearing on the Right lower extremity at the 2 week visit. Harriett will need 3 nonweight bearing views of the right foot at the 6 week post-op visit. documented in this encounter [facility] 11-07-2022 Note Formatting of this n ote might be different from the original. Written discharge instructions reviewed with pt mom and brother. Questions answered. [facility] 11-07-2022 Note Formatting of this n ote might be different from the original. Assisted into wheelchair to use restroom. Able to maintain non weight bearing. Provided with crutches has knee scooter at home and ramp. Crutches adjusted to height and measured. States she has walker and has been practicing. [facility] 11-07-2022 Note Formatting of this n ote might be different from the original. Received pt from OR to recovery phase 1 arouses easily to name and denies pain is able to move toes and lift leg off bed. Belongings retrieved from [employer]. T [facility] 11-07-2022 Note Airway Date/Time: 11/07/2022 8:23 AM Urgency: scheduled Airway not difficult General Information and Staff Patient location during procedure: Procedural Resident/DATABASE ADMINISTRATION PROJECT MANAGER: BERTRAND Waggoner CRNA Performed: DATABASE ADMINISTRATION PROJECT MANAGER Performed by: BERTRAND Waggoner CRNA Authorized by: BERTRAND Waggoner CRNA Indications and Patient Condition Indications for airway management: anesthesia and airway protection Sedation level: Asleep Preoxygenated: yes Patient position: sniffing Mask difficulty assessment: 1 - vent by mask Final Airway Details Final airway type: endotracheal airway Successful airway: ETT Successful intubation technique: direct laryngoscopy Blade: Zane Blade size: #3 ETT size (mm): 7.0 Cormack-Lehane Classification: grade IIb - view of arytenoids or posterior of glottis only Placement verified by: capnometry [facility] 11-07-2022 Note Peripheral Block Time Out: 11/07/2022 7:32 AM Patient location during procedure: holding area Start time: 11/07/2022 7:33 AM End time: 11/07/2022 7:45 AM Reason for block: at surgeon's request and post-op pain management Staffing Performed: anesthesiologist Anesthesiologist: Scott Thibodeaux Jr., MD Preanesthetic Checklist Completed: patient identified, IV checked, site marked, risks and benefits discussed, surgical consent, monitors and equipment checked, pre-op evaluation and timeout performed Region: Lower Extremities Primary: Popliteal Secondary: Saphenous Peripheral Block Patient position: supine Prep: ChloraPrep Patient monitoring: heart rate, continuous pulse ox and classroom monitor O2: Room air Laterality: right Injection technique: single-shot Guidance: nerve stimulator and ultrasound guided -image retained in chart, tip of the needle identified by ultraound during injection. Local infiltration: lidocaine Infiltration strength: 1 % Dose: 3 mL Needle Needle: 22G X 80 mm Additional Notes 10 mL 0.5% Ropivacaine plain Saphenous 40 mL 0.375% Bupivacaine HCL with decadron sodium phosphate 0.01% & Epi 1:200,000 11/07/2022 7:33 AM Assessment Injection assessment: negative aspiration for heme, no paresthesia on injection, incremental injection and local visualized surrounding nerve on ultrasound Paresthesia pain: none Heart rate change: no Slow fractionated injection: yes Required Documentation: Relevant anatomy identified (Nerves, Vessels, Muscles), Negative for blood on aspiration, Local anesthetic injected incrementally with intermittent aspiration every 5 mL, Normal resistance with injection, Local anesthetic spread visualized around nerves or plane., No EKG changes noted, No symptoms of toxicity and No paresthesias reported by patient during injection [facility] 11-07-2022 Note H&P reviewed. The pa tient was examined and there are no changes to the H&P. [facility] 11-07-2022 Note Formatting of this n ote might be different from the original. Pre-operative Diagnosis: Right posterior tibial tendon rupture Post-operative Diagnosis: Same Procedure: #1 Right foot triple arthrodesis, #2 Right Achilles triple cut tendon lengthening Components used: Synthes Anesthesia: General + Regional Surgeon: Reji Assistants: Lori Zimmer Estimated Blood Loss: 100ml Complications: None Specimens: No Medications: Ancef 2 g IV and TXA 1 g IV Operative findings: At the conclusion of the case the hindfoot was in 5 of valgus, the foot was in a plantigrade position based on simulated weightbearing on a flat plate intraoperatively and full dorsiflexion of the ankle with the hindfoot in the corrected position was achieved. History of present illness: Harriett is a 62 y.o. female with Right posterior tibial tendon rupture who had failed all attempts at nonoperative treatment. Because of continued problems despite nonoperative care Harriett wish to undergo surgical intervention. Despite the risks of the above mentioned operative procedure Harriett wish to proceed. Operative report: I met with Harriett in the preoperative area prior to the procedure and discussed the surgical plan once again and answered all of her questions related to the procedure and the expected post-operative course. The risks of surgery were discussed including but not limited to the risks of medications given for surgery, the risk of blood loss during and after surgery that can lead to the need for blood products in certain situations, infection, damage to normal structures that can lead to mcc problems of pain or dysfunction, wound healing complications, the possibility of nonunion, malunion and late or chronic pain were also discussed. In addition potentially life threatening complications at the time of surgery and after surgery were discussed including but not limited to deep vein thrombosis, pulmonary embolism, myocardial infarction, stroke and . I initialed her Right lower extremity and signed her consent form. Harriett was then taken for a popliteal block by the anesthesia staff. Harriett was then brought to the operating room and placed in the supine position on the Operating Room table. Care was taken to identify and pad all bony prominences. A general anesthetic was then given by the anesthesia staff and an endotracheal tube was placed by the anesthesia staff. At all times during the operative procedure the patient's head neck and airway were protected by the anesthesia staff. A tourniquet was applied to the proximal thigh over cast padding. Total tourniquet time was less than 2 hours. The Right lower extremity was then prepped and draped in the usual orthopedic sterile fashion. A surgical timeout was then performed with the patient's identification, the procedure to be performed being reviewed with the consent form, verification that the patient had received preoperative antibiotics, and verification of the correct surgical side. Everyone in the operating room stopped what they were doing in order to participate in the timeout. This timeout was performed by myself, the circulating room nurse and the anesthesia staff. The patient's ASA was verified by the nurse [employer] launch commander and the anesthesia staff. Fire risk was assessed. The Right lower extremity was then exanguinated using an Esmarch bandage and the tourniquet was inflated. Right ankle dorsiflexion was assessed with the knee in extension and flexion. 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 After tourniquet inflation a triple cut Achilles tendon lengthening was performed with 2 medial sided incisions and one lateral sided. Each incision was percutaneous and 1/3-1/2 of the tendon was released at each percutaneous incision site. The first incision was 1 cm proximal to the posterior calcaneal tuberosity on the medial side followed by a lateral incision 1 cm proximal followed by a medial incision 1 cm proximal to the lateral incision. Once released the ankle was brought into maximal dorsiflexion with the knee extended and the tendon was lengthened. Dorsiflexion past neutral was now possible with the knee extended signifying correction of the contracture and adequate lengthening of the Achilles tendon. Palpation was performed and a continuous tendinous structure was noted throughout the course of the Achilles. A tarsal sinus incision was then made from the tip of the lateral malleolus extending towards the base of the fourth metatarsal. Skin and subcutaneous tissues were divided with care taken to protect branches of the superficial peroneal and sural nerves. Any crossing vessels were cauterized. The wound was deepened down to the level of the interval between the peroneus brevis tendon and the inferior edge of the extensor digitorum brevis. Just above this interval the tarsal sinus was approached. The fat of the tarsal sinus was elevated in a dorsal direction. The joint capsule of the subtalar joint was incised. This gave us good visualization of the anterior, middle and posterior facets of the subtalar joint. More distally the calcaneocuboid joint was exposed with further dorsal elevation of the extensor digitorum brevis. The joint capsule of the calcaneocuboid joint was incised allowing for visualization of the opposing surfaces of the calcaneocuboid joint. A lamina nc manager was placed both in the subtalar joint and the calcaneocuboid joint to help visualize the entirety of both joints. The above findings were noted once the exposure was completed. At this point stepwise debridement of any remaining articular cartilage was performed using a combination of osteotomes, ronguers and curettes. This was performed on both sides of the subtalar joint at each facet location. Once adequate debridement had been performed of the entirety of the joint surface a quarter inch osteotome was used to scale of the opposing bony surfaces. This was performed to increase the surface area for fusion and to promote vascular channel ingrowth. In similar fashion the calcaneocuboid joint was prepared removing all articular cartilage with a combination of curettes and osteotomes. Insert locations A high-speed bur was also utilized were curettes and osteotomes were ineffective. Both sides of the calcaneocuboid joint were then scaled using a quarter-inch osteotome to increase the surface area for fusion and to create areas for vascular channel ingrowth. Attention then turned to the medial aspect of the hindfoot overlying the talonavicular joint. A longitudinal incision was placed midway between the anterior tibial tendon and the posterior tibial tendon overlying the talonavicular joint medially. The skin and subcutaneous tissues were divided any crossing vessels from the saphenous system were cauterized. The wound was deepened down to level of the talonavicular joint capsule. The joint capsule was incised longitudinally and elevated dorsally and plantarly. The posterior tibial tendon attachment was noted as was the posterior tibial tendon and it was left intact. Once adequate visualization of the joint was achieved the articular cartilage that was still present and portions of the joint was removed. The cartilage was removed using a combination of curettes, rongeurs and osteotomes. Once all articular cartilage had been removed from both the talar head and the opposing navicular surface both opposing bony surfaces were scaled using a quarter inch osteotome. The scaling was performed to increase the surface area for fusion and to provide areas for vascular channel ingrowth. Once the subtalar, calcaneocuboid and talonavicular joints were fully prepared for fusion the subtalar joint was placed in 5 of valgus and the talonavicular joint and calcaneocuboid joints were positioned such that the talar head was completely covered by the navicular and the foot was in a plantar grade position. Holding this position a guidepin was placed in the distal aspect of the navicular medially and advanced through the talonavicular joint and into the talar head and neck region. Fluoroscopic images were obtained to ensure proper position of the the talonavicular joint for fusion and of the pin on AP, oblique and lateral views of the foot and ankle. Simulated weightbearing on a flat plate was performed to ensure that the foot was in a plantar grade position. Verification was made that the hindfoot was now in 5 of valgus. A guidepin for a 7 mm cannulated maxtorque screw was then placed under fluoroscopic guidance through the plantar posterior aspect of the posterior tuberosity of the calcaneus across the subtalar joint and ending in the talar body and dome. Location of this guide pin was verified on fluoroscopic imaging of the foot and ankle to ensure that it crossed the subtalar joint at the correct angle and was fully within the talus on the AP views of the foot and ankle. Once adequate pin placement had been achieved an incision was made in the skin at the level of the heel. A depth gauge was used to measure the pin and the pin was then drilled with a cannulated drill and the correct length 7 mm cannulated maxtorque screw was placed and fully seated. Excellent compression across the subtalar joint was achieved. Fluoroscopic imaging was obtained in AP, oblique and lateral planes of the foot and ankle to ensure proper position of the screw, compression of the subtalar joint and to ensure that the screw did not penetrate the ankle joint. Once verification was made a second pin for a 4.5 mm headless compression screw was placed across the talonavicular joint and fluoroscopic images were again obtained of the ankle and foot in the above-mentioned planes to ensure proper position of the second pin. The initial pin was then measured and drilled the appropriate depth and the appropriate length 4.5 mm headless compression screw was placed with care taken to keep all the threads of the screw on the talar side of the fusion so that adequate compression across the fusion surface could be obtained. Once the first screw was fully seated the second guidepin was measured and drilled the appropriate depth and the appropriate length screw was placed so that 2 screws crossed the talonavicular joint. An additional 4.5 mm screw was placed from the lateral portion of the tarsal navicular into the talar head/neck to compress the lateral half of the talar navicular joint. This screw was placed after first placing a percutaneous guide pin over the dorsal lateral midfoot, checking placement of the pin on fluoroscopic images, making an incision at the pin-skin interface, measuring the pin, drilling and then placing the appropriate length screw. Additional fluoroscopic images were then obtained in AP, oblique and lateral planes of both the foot and the ankle to ensure proper position of the hardware and of the talonavicular fusion itself. At this point the calcaneocuboid joint was then compressed utilizing a Synthes compression plate. A Synthes midfoot compression plate was placed across the calcaneocuboid joint. All of wires were placed through the plate holding it in the correct orientation. Once I was satisfied with placement of the plate the compression clamp was placed on all the wires and compression across the calcaneocuboid joint was achieved. 2.7 mm locking screws were placed through the plate into both the calcaneus and the cuboid after appropriate drilling and measuring. The plate held the compression achieved with a compression clamp. Right ankle dorsiflexion was assessed with the knee in extension and flexion. 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 A triple cut Achilles tendon lengthening was performed with 2 medial sided incisions and one lateral sided. Each incision was percutaneous and 1/3-1/2 of the tendon was released at each percutaneous incision site. The first incision was 1 cm proximal to the posterior calcaneal tuberosity on the medial side followed by a lateral incision 1 cm proximal followed by a medial incision 1 cm proximal to the lateral incision. Once released the ankle was brought into maximal dorsiflexion with the knee extended and the tendon was lengthened. Dorsiflexion past neutral was now possible with the knee extended signifying correction of the contracture and adequate lengthening of the Achilles tendon. Palpation was performed and a continuous tendinous structure was noted throughout the course of the Achilles. A flat plate was then placed on the plantar aspect of the foot and dorsiflexion of the ankle was performed. It was noted with simulated weightbearing on the flat plate that the foot was in a plantar grade position, the hindfoot was in approximately 5 of valgus and oriental orthodox of the longitudinal arch height was present. Final fluoroscopic images were then obtained in AP, oblique and lateral planes of the foot and ankle to ensure proper position of the fusion and of the hardware. The foot was rechecked to ensure that the hindfoot was in the correct position of 5 of valgus. Once verified the incision sites were thoroughly irrigated copious amounts of sterile saline. The tourniquet was then released and any active bleeding was controlled using Bovie cautery. The wounds were thoroughly irrigated with copious amounts of sterile saline. The subcutaneous tissues were then closed utilizing 2-0 Vicryl. The skin was then closed utilizing 4-0 Monocryl in a subcuticular type running stitch. Dermabond was then applied to the incision(s) and allowed to dry. Dry sterile dressings were then applied and a well-padded posterior splint with the ankle in neutral dorsiflexion was placed. Harriett was then awakened from her anesthetic, transferred to her hospital bed and taken to the recovery room in stable medical condition. Post-operative plan: Harriett will follow-up in 2 weeks for her first post-operative check. her incision(s) was/were closed with buried suture and she will not need sutures removed At the first post-operative visit Harriett will will be placed in a tall Aircast boot and will be allowed to remove the boot for sleep, for bathing and for ROM of the foot and ankle. Harriett will be instructed to be nonweight bearing on the Right lower extremity at the 2 week visit. Harriett will need 3 nonweight bearing views of the right foot at the 6 week post-op visit. [place] Phone: 11-07-2022 Hospital Discharg e instructions ROME Roberto - 11/07/2022 7:36 AM EDT Images from the original note were not included. SPLINT INSTRUCTIONS Keep your splint clean and dry. Do not put anything down in the splint to scratch. If your splint gets wet or starts to feel uncomfortable call Dr Mendoza immediately ([phone]). If you see any blood on the outside bandage reinforce it on the surface with gauze and an celeste bandage and call Dr Mendoza [phone]. Do not walk or stand on your splint. You can rest the splint on the floor but do not put weight on it. You should get up and move around once or twice an hour based on your comfort level. You are not to be at bed rest meaning you need to get up and move around in order to prevent blood clots. It is OK to wiggle your toes and you can contract your calf muscle inside the splint as well. When you put your foot down it is normal for the toes to turn a bluish or purple color. Once you elevate the foot for a few minutes a normal pink color should return underneath the toenails. If the color does not change within 10 minutes after elevating call Dr. Mendoza. If you were given a boot by our office or by an emergency department/urgent care prior to surgery, please bring it to your first post-operative appointment with you as we will take off the splint at this appointment and will most likely transition you into the boot. ELEVATION Keep your foot/ankle elevated for comfort. Elevating your foot/ankle is the best way to control your swelling and pain. Elevation means keeping the toes at the level of your nose. If your leg is not elevated to that height then it is not truly elevated. This is Elevated This is not Elevated MEDICATIONS You have been given a prescription for a narcotic medication that is intended for postoperative pain control. This medication should be used judiciously to try and minimize your discomfort after surgery. The medication will not relieve all of your pain and you should not take large amounts of the medication in an attempt to be pain free. Please understand that narcotic medications can be addictive and they are intended to decrease but not eliminate your pain and should therefore be used in moderation. If you have questions regarding taking the narcotic medication and other medications that you are currently on please call the office. You cannot drive or operate machinery while taking the narcotic medication. You should not drink alcohol or use recreational drugs while taking the narcotic medication.The [facility] restricts the amount of pain pills that can be legally prescribed and no more than one prescription in a week can be given. If you require a refill of the pain medication it requires that someone come to the office in person as it cannot be called in to the pharmacy or E-prescribed. Please understand that there is a limit to the total amount of pain medication that can be prescribed so make every effort to take it only when needed. Unless otherwise instructed by Dr Mendoza you can take an over the counter anti-inflammatory to help with your pain as well. This includes but is not limited to Ibuprofen, Advil, Motrin, Alleve, etc. A prescription for baby aspirin was sent to your pharmacy and Dr. Mendoza wants you to take one tablet twice a day for 30 days after surgery. If you have any issues with the medication call Dr. Mendoza. This is intended to try to prevent blood clots. A prescription for a Vitamin D supplement was sent to your pharmacy to help your bone to heal. If you have any issues with the supplement call Dr. Mendoza. WEIGHTBEARING INSTRUCTIONS Dr Mendoza wants you to be nonweight bearing on the right lower extremity. You will continue this weight bearing restriction for the next 6 weeks If you have any problems maintaining this weight bearing status please call the office so that appropriate instructions can be given. FREQUENTLY ASKED QUESTIONS FREQUENTLY ASKED QUESTIONS If I am supposed to be non-weight bearing on the operative foot/ankle can I still rest the foot on the ground when I am sitting? Yes, it is OK to rest your operative foot on the ground when you are sitting. Is it normal to feel a bermeo of fluid or pressure in my foot/ankle when I put it down? Yes, after most foot, ankle or leg surgeries it is very common to feel immediate swelling or pressure in your foot, ankle and leg. Is it OK to put ice on my foot/ankle to help with the swelling and pain? After foot/ankle surgery elevating the foot/ankle is much better at relieving pain and swelling than ice. In many cases you bandage prevents the cold from getting to your skin. At your 2 week visit when your bandage is removed, icing the foot/ankle works much better and you can start it then. If I received a nerve block before surgery, how long will it last? A single shot nerve block can last anywhere from 8 hours to 36 hours on average, some patients' single shot blocks stop sooner and some can go a little longer. A catheter block (pain ball) lasts longer when you have it dialed down and it runs out faster if you have it dialed up. For most patients it lasts for a day and a half to 3 days. Can I shower or bathe after surgery? Yes, you can shower or bathe after surgery but you have to put a plastic bag over your splint/dressing to keep the splint/bandage absolutely dry. The splint/bandage is like a sponge and any water that gets in can damage your skin or cause your incision/incisions to open up and get infected. If your splint/bandage gets water in it, call Dr. Mendoza's office ([phone]) immediately and you will be instructed which office can see your the quickest to change your splint/bandage. ROME Roberto - 11/07/2022 7:36 AM EDT Weight-bearing and post-operative activity Dr Mendoza wants you to be nonweight bearing on the right lower extremity. You will continue this weight bearing restriction for the next 6 weeks If you have any problems maintaining this weight bearing status please call the office so that appropriate instructions can be given. Dr. Mendoza wants you to get up once per hour during the day to move around for a few minutes while following the above weight bearing orders. He does not want you to be in bed or on a couch all day not getting up. Getting up and moving once per hour helps to promote blood flow and is one way of trying to prevent a blood clot. Remember that when you get up it is normal for your foot/toes to change color and for you to feel fluid, pressure or throbbing (your heart beat) in your foot or toes. When you return to sitting down or laying down elevate your foot as it will lessen your swelling and be more comfortable. If you are having a hard time moving around during the day, let Dr Menodza know. ROME Roberto - 11/07/2022 7:36 AM EDT Good nutrition is important when healing from an illness, injury, or surgery. Follow any nutrition recommendations given to you during your hospital stay. If you were given an oral nutrition supplement while in the hospital, continue to take this supplement at home. You can take it with meals, in-between meals, and/or before bedtime. These supplements can be purchased at most local grocery stores, pharmacies, and chain super-stores. If you have any questions about your diet or nutrition, call the hospital and ask for the dietitian. The following attachments cannot be sent through Care Everywhere.General Anesthesia Discharge Instructions (Lithuanian)documented in this encounter [facility] 11-07-2022 Attending History and physical note H&P reviewed. The patient was examined and there are no changes to the H&P. Source Note - Lacey Mendoza MD - 10/09/2022 10:30 AM EDT Images from the original note were not included. [facility] [address] [place] [id number] Dept: [phone] Dept Harriett E-House 1960 [id number] 10/09/2022 HISTORY OF PRESENT ILLNESS: Harriett is a 62 y.o. female here today for evaluation of her right foot. 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 Her left foot is starting to hurt more due to her gait. Harriett states the problem has been present for several years Harriett states the problem started gradually with no injuries occurring Harriett has tried or has been treated with the following: Tylenol due to kidneys and bracing . Review of Systems Surgical Risk Factors: Allergies to Metals or Latex: NO Have you been treated for a blood clot: NO Have you had a history of bleeding disorder: NO Have you had a history of Anesthetic problems: NO Do you have tendency to bruise easily: NO Do you experience prolonged or excessive bleeding from cuts or after surgery: NO General/Constitutional: General: no Cancer: NO Acute/Chronic Infections: NO HEENT/Neck: Problems with theThroat: NO Problems with the Eyes: NO Problems with the Ears: NO Problems with the Nose and Sinuses: NO Endocrine: Problems with Diabetes: NO Problems with Thyroid Disorder: NO Thorax: Problems with the Heart: NO Problems with the Lung: no Cardiovascular: Problems with Circulation: NO Problems with High Blood pressure: NO Gastrointestinal: Problems with Ulcers: NO Problems with the Liver: no Problems with Bowel Habits: NO Genitourinary: Problems with the Genitals: NO Urinary problems: NO Kidney disease or stones: yes, kidney disease Skin: Any general problems: NO Neurologic: Dizziness, blurred vision, headaches, problems with balance : NO Seizures or Stroke: NO Psychiatric: Emotional or Psychological disorders: NO Depression or Anxiety: no PAST MEDICAL HISTORY: No past medical history on file. Allergies Allergen Reactions Erythromycin Other Lincomycin Other PHYSICAL EXAM: BP (!) 147/96 Pulse 84 Ht 5' 4 (1.626 m) Wt 203 lb (92.1 kg) BMI 34.84 kg/m This is an age appropriate appearing female who is alert and oriented x 3. The patient appears well nourished. Psychiatric: The patient is able to verbalize normally and seems to have a good understanding of her situation. right lower extremity examination Lymphatic System: No areas of swelling are seen Vascular: Dorsalis pedis pulse: 2+ Posterior tibial pulse: 2+ Capillary refill is less than 3 seconds Skin/nails: Normal appearance, warm and dry Hair growth present on foot and toes Neurologic: Sensation intact to light touch throughout the foot and the ankle Muscle: Muscle strength testing: Anterior tibialis: 5/5 Posterior tibialis: 0/5 Peroneus brevis: 5/5 Peroneus longus: 5/5 Gastrocsoleus: 5/5 In a standing position pes planus deformity of the right foot is noted with an abducted forefoot. The hindfoot is in valgus alignment. The hindfoot and midfoot deformities are passively correctable on exam. Unable to perform single-leg heel rise. No tenderness over the posterior tibial tendon although the tendon is not palpable. Gait and Station: Harriett is able to ambulate with a limp Harriett is able to stand unassisted and maintains balance RADIOGRAPHIC INTERPRETATION: 3 weight bearing views of the bilateral foot were obtained and the following is my interpretation of the findings present of the X-rays: Complete collapse of the longitudinal arch is noted. No signs of arthrosis of the hindfoot. On the AP view the talar head is uncovered at the talonavicular joint and the talar first metatarsal angle was 20 degrees. Left foot: Decrease in longitudinal arch height is noted although not as severe as on the right. Arthritic changes are noted to the midfoot most prominently at the navicular cuneiform and second tarsometatarsal joint level. The talar head is well covered on the AP view. REVIEW OF RELATED PREVIOUS DOCUMENTATION: Documents from Dr. Nichole were reviewed. LABORATORY RESULT INTERPRETATION: No labs were reviewed/No labs available for review DIAGNOSIS: Diagnosis Plan 1. Posterior tibial tendon dysfunction (PTTD) of right lower extremity Walker standard MEDICAL DECISION MAKING: I had a discussion with Harriett to make sure she has a good understanding of the diagnoses/issues that I think are present today and understands the plan moving forward. I had a long discussion with Harriett concerning her Right posterior tibial tendon dysfunction and went over the non-operative and operative options available in detail. I explained to Harriett that she has failed all of the available non-operative treatments and from my standpoint surgery is a reasonable option as a result.. Harriett We talked about correcting her Right posterior tibial tendon rupture/dysfucnction with Right triple arthrodesis and Achilles tendon lengthening. I explained to Harriett that this type of procedure is typically an outpatient procedure meaning she will be able to go home the day of surgery. Harriett understands she will need a ride to and from the hospital and she will need someone to stay with her for a night after the surgery. If for some reason Harriett needs to be admitted to the hospital following the procedure, we can admit if necessary. I explained Harriett would need to be nonweightbearing and this would continue for up to 6 weeks following surgery. During this time Harriett may need to use crutches, a walker, a wheelchair, a knee scooter or a combination of these to get around. I talked to Harriett about the expected postoperative pain level following this type of procedure. I explained that each patient's perception of pain is different and she could experience more pain or less pain than the average patient and that is something that I cannot fully predict. I explained that she would receive a prescription for pain medication at the time of discharge from the hospital and subsequent requests will be considered based on her complaints, exam findings and length of time from surgery. The risks of surgery were discussed including but not limited to the risks of medications given for surgery, the risk of blood loss during and after surgery that can lead to the need for blood products in certain situations, infection, damage to normal structures that can lead to terminal makeup operator problems of pain or dysfunction, wound healing complications, the possibility of nonunion or malunion for any bone procedures if they are required and late or chronic pain. I explained to Harriett that surgery can potentially make their condition worse or can lead to other unexpected problems that can have terminal makeup operator effects on their function or comfort. In addition potentially life threatening complications at the time of surgery and after surgery were discussed including but not limited to deep vein thrombosis, pulmonary embolism, myocardial infarction, stroke and . Harriett understands that no guarantees with regard to surgical outcome can be given and none were implied. Harriett was given the opportunity to ask questions and consider her options. Harriett would like to proceed with the above mentioned procedure. Follow up for Surgery scheduled. Electronically signed by Lacey Mendoza MD [facility] Department of Orthopedic surgery 10/09/2022 12:32 PM Voice recognition was used for portions of this note and although it was reviewed prior to signing some incorrect words or phrases could be present. [facility] 11-07-2022 History and physical note H&P reviewed. The patient was examined and there are no changes to the H&P. Source Note - Lacey Mendoza MD - 10/09/2022 10:30 AM EDT Images from the original note were not included. [facility] [address] [place] [address] [place] [phone] Dept: [phone] Dept Harriett E-House 1960 [id number] 10/09/2022 HISTORY OF PRESENT ILLNESS: Harriett is a 62 y.o. female here today for evaluation of her right foot. 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 Her left foot is starting to hurt more due to her gait. Harriett states the problem has been present for several years Harriett states the problem started gradually with no injuries occurring Harriett has tried or has been treated with the following: Tylenol due to kidneys and bracing . Review of Systems Surgical Risk Factors: Allergies to Metals or Latex: NO Have you been treated for a blood clot: NO Have you had a history of bleeding disorder: NO Have you had a history of Anesthetic problems: NO Do you have tendency to bruise easily: NO Do you experience prolonged or excessive bleeding from cuts or after surgery: NO General/Constitutional: General: no Cancer: NO Acute/Chronic Infections: NO HEENT/Neck: Problems with theThroat: NO Problems with the Eyes: NO Problems with the Ears: NO Problems with the Nose and Sinuses: NO Endocrine: Problems with Diabetes: NO Problems with Thyroid Disorder: NO Thorax: Problems with the Heart: NO Problems with the Lung: no Cardiovascular: Problems with Circulation: NO Problems with High Blood pressure: NO Gastrointestinal: Problems with Ulcers: NO Problems with the Liver: no Problems with Bowel Habits: NO Genitourinary: Problems with the Genitals: NO Urinary problems: NO Kidney disease or stones: yes, kidney disease Skin: Any general problems: NO Neurologic: Dizziness, blurred vision, headaches, problems with balance : NO Seizures or Stroke: NO Psychiatric: Emotional or Psychological disorders: NO Depression or Anxiety: no PAST MEDICAL HISTORY: No past medical history on file. Allergies Allergen Reactions Erythromycin Other Lincomycin Other PHYSICAL EXAM: BP (!) 147/96 Pulse 84 Ht 5' 4 (1.626 m) Wt 203 lb (92.1 kg) BMI 34.84 kg/m This is an age appropriate appearing female who is alert and oriented x 3. The patient appears well nourished. Psychiatric: The patient is able to verbalize normally and seems to have a good understanding of her situation. right lower extremity examination Lymphatic System: No areas of swelling are seen Vascular: Dorsalis pedis pulse: 2+ Posterior tibial pulse: 2+ Capillary refill is less than 3 seconds Skin/nails: Normal appearance, warm and dry Hair growth present on foot and toes Neurologic: Sensation intact to light touch throughout the foot and the ankle Muscle: Muscle strength testing: Anterior tibialis: 5/5 Posterior tibialis: 0/5 Peroneus brevis: 5/5 Peroneus longus: 5/5 Gastrocsoleus: 5/5 In a standing position pes planus deformity of the right foot is noted with an abducted forefoot. The hindfoot is in valgus alignment. The hindfoot and midfoot deformities are passively correctable on exam. Unable to perform single-leg heel rise. No tenderness over the posterior tibial tendon although the tendon is not palpable. Gait and Station: Harriett is able to ambulate with a limp Harriett is able to stand unassisted and maintains balance RADIOGRAPHIC INTERPRETATION: 3 weight bearing views of the bilateral foot were obtained and the following is my interpretation of the findings present of the X-rays: Complete collapse of the longitudinal arch is noted. No signs of arthrosis of the hindfoot. On the AP view the talar head is uncovered at the talonavicular joint and the talar first metatarsal angle was 20 degrees. Left foot: Decrease in longitudinal arch height is noted although not as severe as on the right. Arthritic changes are noted to the midfoot most prominently at the navicular cuneiform and second tarsometatarsal joint level. The talar head is well covered on the AP view. REVIEW OF RELATED PREVIOUS DOCUMENTATION: Documents from Dr. Nichole were reviewed. LABORATORY RESULT INTERPRETATION: No labs were reviewed/No labs available for review DIAGNOSIS: Diagnosis Plan 1. Posterior tibial tendon dysfunction (PTTD) of right lower extremity Walker standard MEDICAL DECISION MAKING: I had a discussion with Harriett to make sure she has a good understanding of the diagnoses/issues that I think are present today and understands the plan moving forward. I had a long discussion with Harriett concerning her Right posterior tibial tendon dysfunction and went over the non-operative and operative options available in detail. I explained to Harriett that she has failed all of the available non-operative treatments and from my standpoint surgery is a reasonable option as a result.. Harriett We talked about correcting her Right posterior tibial tendon rupture/dysfucnction with Right triple arthrodesis and Achilles tendon lengthening. I explained to Harriett that this type of procedure is typically an outpatient procedure meaning she will be able to go home the day of surgery. Harriett understands she will need a ride to and from the hospital and she will need someone to stay with her for a night after the surgery. If for some reason Harriett needs to be admitted to the hospital following the procedure, we can admit if necessary. I explained Harriett would need to be nonweightbearing and this would continue for up to 6 weeks following surgery. During this time Harriett may need to use crutches, a walker, a wheelchair, a knee scooter or a combination of these to get around. I talked to Harriett about the expected postoperative pain level following this type of procedure. I explained that each patient's perception of pain is different and she could experience more pain or less pain than the average patient and that is something that I cannot fully predict. I explained that she would receive a prescription for pain medication at the time of discharge from the hospital and subsequent requests will be considered based on her complaints, exam findings and length of time from surgery. The risks of surgery were discussed including but not limited to the risks of medications given for surgery, the risk of blood loss during and after surgery that can lead to the need for blood products in certain situations, infection, damage to normal structures that can lead to terminal makeup operator problems of pain or dysfunction, wound healing complications, the possibility of nonunion or malunion for any bone procedures if they are required and late or chronic pain. I explained to Harriett that surgery can potentially make their condition worse or can lead to other unexpected problems that can have mcc effects on their function or comfort. In addition potentially life threatening complications at the time of surgery and after surgery were discussed including but not limited to deep vein thrombosis, pulmonary embolism, myocardial infarction, stroke and . Harriett understands that no guarantees with regard to surgical outcome can be given and none were implied. Harriett was given the opportunity to ask questions and consider her options. Harriett would like to proceed with the above mentioned procedure. Follow up for Surgery scheduled. Electronically signed by Lacey Mendoza MD [facility] Department of Orthopedic surgery 10/09/2022 12:32 PM Voice recognition was used for portions of this note and although it was reviewed prior to signing some incorrect words or phrases could be present. documented in this encounter [facility] 10-31-2022 Note Patient: Harriett hess Procedure Information Date/Time: 11/07/22 0800 Procedures: RIGHT TRIPLE ARTHRODESIS AND ACHILLES TENDON LENGTHENING (Right: Foot) - 3 hours LENGTHENING OR SHORTENING OF TENDON LEG OR ANKLE (Right: Leg Lower) Location: [address] Operating Room Surgeons: Laecy Mendoza MD Relevant Problems No relevant active problems Past Medical History: Past Medical History: No date: Arthritis No date: Depression Comment: remote No date: Posterior tibial tendinitis of right leg Comment: SCHEDULED FOR THE SURGERY ON11/07/22 Past Surgical History: Past Surgical History: No date: COLONOSCOPY No date: EYE SURGERY; Right Comment: laser- gas bubble No date: OOPHORECTOMY; Bilateral Comment: with repair of bladder No date: RETINAL DETACHMENT SURGERY; Right No date: TONSILLECTOMY Social History: TOBACCO: reports that she has never smoked. She has never used smokeless tobacco. ETOH: reports that she does not currently use alcohol. Social History Substance and Sexual Activity Drug Use Never Family History: No family history on file. Screening: Postmenopausal Clinical information reviewed: Tobacco Allergies Meds Med Hx Surg Hx OB Status Fam Hx Soc Hx Physical Exam Airway Mallampati: III TM distance: >3 FB Neck ROM: limited Mouth Open: normalendotracheal tube not in place Cardiovascular Dental Comments: Few missing, denies loose teeth Pulmonary Abdominal Other findings: Rare GERD - TUMS PRN no symptoms today Anesthesia Plan patient is NPO appropriate Any family history or previous problems with anesthesia no ASA 2 general and regional Any family history or previous problems with anesthesia no (Popliteal Discussed regional anesthesia for post operative pain reduction, all benefits and risks/complications. All questions were answered. Patient consents to a regional anesthesia for post operative pain control.) The patient is not a current smoker. Anesthetic plan and risks discussed with patient. ERAS Type Tylenol Pepcid NORMAN Screening STOP-Bang Total Score: 3 Labs: Lab Results Component Value Date WBC 5.9 10/31/2022 HGB 13.1 10/31/2022 HCT 37.8 10/31/2022 MCV 86.8 10/31/2022 PLT 298 10/31/2022 No results found for: NA, K, CL, CO2, BUN, CREATININE, GLUCOSE, CALCIUM, PROT, BILIRUBINFL, ALKPHOS, AST, ALT, EGFR, GLOB Pain Score: 3 No echocardiogram results found for the past 14 days 10/31/22 ECG 12-LEAD Impression SINUS RHYTHM LVH BY VOLTAGE No previous ECG available for comparison Electronically Signed On 11-02-2022 17:17:52 EDT by [facility] 10-31-2022 Note Comprehensive PreSur gical History and Physical ? Name: Harriett Dueñas : 1960 (Age-62 y.o.) Date of Service: Pt seen/examined on 10/31/2022 Procedure Information Date/Time: 11/07/22 0800 Procedures: RIGHT TRIPLE ARTHRODESIS AND ACHILLES TENDON LENGTHENING (Right: Foot) - 3 hours LENGTHENING OR SHORTENING OF TENDON LEG OR ANKLE (Right: Leg Lower) Location: [address] Operating Room Surgeons: Lacey Mendoza MD Chief Complaint: RIGHT FOOT PAIN ASSESSMENT/PLAN: Patient is considered intermediate risk for this intermediate risk procedure/surgery noted above ( with no reducible risk factors. Based on the above evaluation, the benefits of the planned procedure likely exceed the risks. The patient is medically optimized to proceed with the planned procedure without any further cardiopulmonary testing. 1) POSTERIOR TIBIAL TENDINITIS ; Managed per surgery 2) MIGRAINE ; ON IMITREX 3) BP TO-DAY 160/104 AND RECHECK 149/97 ; DENIES TAKING ANY MEDS;ORDERED EKG 4) BMI 35.74 Visit Type: Pre-Admission Testing Visit Labs Ordered: YES - PER PAT PROTOCOL Sleep Referral Ordered: NO - NEGATIVE SCREEN PER SLEEP REFERRAL PROTOCOL Total time spent (which include face to face and non face to face encounters) : 40 minutes Toxic drug monitoring/narrow therapeutic index drug monitoring : # Drug name : IMITREX # Route administered : ORALLY # Method of monitoring : LAB WORK PAT Protocol referenced includes: 1. Anesthesia Lab Protocol Orders 2. Perioperative Cardiovascular Risk Assessment 3. Anesthesia Assessment 4. Pain Assessment and Acute Pain Service Consult (if appropriate) 5. Medical Clearance/Consult from Internal Medicine ([facility]) 6. Shower/Wash Order (for designated surgeries) 7. NORMAN Screen and Sleep Clinic Referral (if appropriate) History Of Present Illness: 62 y.o. female who presents with chief complaint mentioned above. Per surgeon's note dated 10/09/22 Harriett is a 62 y.o. female here today for evaluation of her right foot. 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 Her left foot is starting to hurt more due to her gait. Harriett states the problem has been present for several years Harriett states the problem started gradually with no injuries occurring Harriett has tried or has been treated with the following: Tylenol due to kidneys and bracing . Pt has seen the surgeon and elected for above procedure. Denies Hx of HTN, DM, Asthma/COPD, NORMAN, CAD, CHF, a fib, MT, TIA/CVA, DVT/PE Hx problems with anesthesia? - denies Dental? -No missing teeth nothing loose or broken no partials or dentures crowns Snore at night? - sometimes Past Medical History: Past Medical History: No date: Arthritis No date: Depression Comment: remote No date: Posterior tibial tendinitis of right leg Comment: SCHEDULED FOR THE SURGERY ON11/07/22 Past Surgical History: Past Surgical History: No date: COLONOSCOPY No date: EYE SURGERY; Right Comment: laser- gas bubble No date: OOPHORECTOMY; Bilateral Comment: with repair of bladder No date: RETINAL DETACHMENT SURGERY; Right No date: TONSILLECTOMY Medications Prior to Admission: Current Outpatient Medications: omega-3 (Fish Oil) 1000 MG capsule, Take 1,000 mg by mouth daily., Disp: , Rfl: w/o A Vit-Fe Fum-FA (PRENATA PO), Take by mouth., Disp: , Rfl: SUMAtriptan (Imitrex) 100 MG tablet, , Disp: , Rfl: CHRONIC NARCOTIC USE: No Allergies: Erythromycin and Lincomycin If patient has opioid allergy, is it okay to take Acetaminophen: Yes Social History: TOBACCO: reports that she has never smoked. She has never used smokeless tobacco. ETOH: reports that she does not currently use alcohol. Social History Substance and Sexual Activity Drug Use Never Family History: No family history on file. REVIEW OF SYSTEMS: Review of Systems Constitutional: Negative for chills and fever. Respiratory: Negative for shortness of breath. Gastrointestinal: Negative for nausea and vomiting. Pertinent positives as noted in the HPI. Physical Exam: Physical Exam Vitals and nursing note reviewed. Constitutional: Appearance: Normal appearance. HENT: Head: Normocephalic and atraumatic. Mouth/Throat: Mouth: Mucous membranes are moist. Eyes: Extraocular Movements: Extraocular movements intact. Pupils: Pupils are equal, round, and reactive to light. Cardiovascular: Rate and Rhythm: Normal rate and regular rhythm. Pulses: Normal pulses. Pulmonary: Effort: Pulmonary effort is normal. Abdominal: General: Bowel sounds are normal. Musculoskeletal: Cervical back: Normal range of motion and neck supple. Skin: General: Skin is warm. Neurological: General: No focal deficit presen (more content not included)... [facility] 10-31-2022 Note Comprehensive PreSur gical History and Physical ? Name: Harriett Dueñas : 1960 (Age-62 y.o.) Date of Service: Pt seen/examined on 10/31/2022 Procedure Information Date/Time: 11/07/22 0800 Procedures: RIGHT TRIPLE ARTHRODESIS AND ACHILLES TENDON LENGTHENING (Right: Foot) - 3 hours LENGTHENING OR SHORTENING OF TENDON LEG OR ANKLE (Right: Leg Lower) Location: [address] Operating Room Surgeons: Lacey Mendoza MD Chief Complaint: RIGHT FOOT PAIN ASSESSMENT/PLAN: Patient is considered intermediate risk for this intermediate risk procedure/surgery noted above ( with no reducible risk factors. Based on the above evaluation, the benefits of the planned procedure likely exceed the risks. The patient is medically optimized to proceed with the planned procedure without any further cardiopulmonary testing. 1) POSTERIOR TIBIAL TENDINITIS ; Managed per surgery 2) MIGRAINE ; ON IMITREX 3) BP TO-DAY 160/104 AND RECHECK 149/97 ; DENIES TAKING ANY MEDS;ORDERED EKG 4) BMI 35.74 Visit Type: Pre-Admission Testing Visit Labs Ordered: YES - PER PAT PROTOCOL Sleep Referral Ordered: NO - NEGATIVE SCREEN PER SLEEP REFERRAL PROTOCOL Total time spent (which include face to face and non face to face encounters) : 40 minutes Toxic drug monitoring/narrow therapeutic index drug monitoring : # Drug name : IMITREX # Route administered : ORALLY # Method of monitoring : LAB WORK PAT Protocol referenced includes: 1. Anesthesia Lab Protocol Orders 2. Perioperative Cardiovascular Risk Assessment 3. Anesthesia Assessment 4. Pain Assessment and Acute Pain Service Consult (if appropriate) 5. Medical Clearance/Consult from Internal Medicine ([facility]) 6. Shower/Wash Order (for designated surgeries) 7. NORMAN Screen and Sleep Clinic Referral (if appropriate) History Of Present Illness: 62 y.o. female who presents with chief complaint mentioned above. Per surgeon's note dated 10/09/22 Harriett is a 62 y.o. female here today for evaluation of her right foot. 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 Her left foot is starting to hurt more due to her gait. Harriett states the problem has been present for several years Harriett states the problem started gradually with no injuries occurring Harriett has tried or has been treated with the following: Tylenol due to kidneys and bracing . Pt has seen the surgeon and elected for above procedure. Denies Hx of HTN, DM, Asthma/COPD, NORMAN, CAD, CHF, a fib, MT, TIA/CVA, DVT/PE Hx problems with anesthesia? - denies Dental? -No missing teeth nothing loose or broken no partials or dentures crowns Snore at night? - sometimes Past Medical History: Past Medical History: No date: Arthritis No date: Depression Comment: remote No date: Posterior tibial tendinitis of right leg Comment: SCHEDULED FOR THE SURGERY ON11/07/22 Past Surgical History: Past Surgical History: No date: COLONOSCOPY No date: EYE SURGERY; Right Comment: laser- gas bubble No date: OOPHORECTOMY; Bilateral Comment: with repair of bladder No date: RETINAL DETACHMENT SURGERY; Right No date: TONSILLECTOMY Medications Prior to Admission: Current Outpatient Medications: omega-3 (Fish Oil) 1000 MG capsule, Take 1,000 mg by mouth daily., Disp: , Rfl: w/o A Vit-Fe Fum-FA (PRENATA PO), Take by mouth., Disp: , Rfl: SUMAtriptan (Imitrex) 100 MG tablet, , Disp: , Rfl: CHRONIC NARCOTIC USE: No Allergies: Erythromycin and Lincomycin If patient has opioid allergy, is it okay to take Acetaminophen: Yes Social History: TOBACCO: reports that she has never smoked. She has never used smokeless tobacco. ETOH: reports that she does not currently use alcohol. Social History Substance and Sexual Activity Drug Use Never Family History: No family history on file. REVIEW OF SYSTEMS: Review of Systems Constitutional: Negative for chills and fever. Respiratory: Negative for shortness of breath. Gastrointestinal: Negative for nausea and vomiting. Pertinent positives as noted in the HPI. Physical Exam: Physical Exam Vitals and nursing note reviewed. Constitutional: Appearance: Normal appearance. HENT: Head: Normocephalic and atraumatic. Mouth/Throat: Mouth: Mucous membranes are moist. Eyes: Extraocular Movements: Extraocular movements intact. Pupils: Pupils are equal, round, and reactive to light. Cardiovascular: Rate and Rhythm: Normal rate and regular rhythm. Pulses: Normal pulses. Pulmonary: Effort: Pulmonary effort is normal. Abdominal: General: Bowel sounds are normal. Musculoskeletal: Cervical back: Normal range of motion and neck supple. Skin: General: Skin is warm. Neurological: General: No focal deficit presen (more content not included)... [facility] 10-11-2022 Note Procedure: right Tri ple arthrodesis (01425) and Achilles tendon lengthening (58843) CPT codes: see above Diagnosis: No primary diagnosis found. Location for Surgery: Any location (patient choice) Schedule for: 3 hours Admission Type: Outpatient Medical Clearance: No Antibiotic: Ancef 2g IV Anesthesia: Popliteal block (single shot) + General Position and Table type: Supine on Regular OR table Radiology: Big C-arm Implants: Synthes 4.5 mm headless compression screws, Synthes 6.5 mm headless compression screws, and BLUEPHOENIX midfoot plates Equipment: Reji specials tray, Osteotomes, Synthes Foot Distractor, TPS, and Lamina Spreaders [facility] 10-09-2022 Note SURGERY SCHEDULING S HEET Procedure: right Triple arthrodesis (45369) and Achilles tendon lengthening (87136) CPT codes: see above Diagnosis: No primary diagnosis found. Location for Surgery: Any location (patient choice) Schedule for: 3 hours Admission Type: Outpatient Medical Clearance: No Antibiotic: Ancef 2g IV Anesthesia: Popliteal block (single shot) + General Position and Table type: Supine on Regular OR table Radiology: Big C-arm Implants: Synthes 4.5 mm headless compression screws, Synthes 6.5 mm headless compression screws, and Synthes midfoot plates Equipment: Reji specials tray, Osteotomes, Synthes Foot Distractor, TPS, and Lamina Spreaders [facility] 10-09-2022 Note [facility] [address] [place] [address] [place] [id number] Dept: [phone] Dept Harriett Dueñas 1960 [id number] 10/09/2022 HISTORY OF PRESENT ILLNESS: Harriett is a 62 y.o. female here today for evaluation of her right foot. 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 Her left foot is starting to hurt more due to her gait. Harriett states the problem has been present for several years Harriett states the problem started gradually with no injuries occurring Harriett has tried or has been treated with the following: Tylenol due to kidneys and bracing . Review of Systems Surgical Risk Factors: Allergies to Metals or Latex: NO Have you been treated for a blood clot: NO Have you had a history of bleeding disorder: NO Have you had a history of Anesthetic problems: NO Do you have tendency to bruise easily: NO Do you experience prolonged or excessive bleeding from cuts or after surgery: NO General/Constitutional: General: no Cancer: NO Acute/Chronic Infections: NO HEENT/Neck: Problems with theThroat: NO Problems with the Eyes: NO Problems with the Ears: NO Problems with the Nose and Sinuses: NO Endocrine: Problems with Diabetes: NO Problems with Thyroid Disorder: NO Thorax: Problems with the Heart: NO Problems with the Lung: no Cardiovascular: Problems with Circulation: NO Problems with High Blood pressure: NO Gastrointestinal: Problems with Ulcers: NO Problems with the Liver: no Problems with Bowel Habits: NO Genitourinary: Problems with the Genitals: NO Urinary problems: NO Kidney disease or stones: yes, kidney disease Skin: Any general problems: NO Neurologic: Dizziness, blurred vision, headaches, problems with balance : NO Seizures or Stroke: NO Psychiatric: Emotional or Psychological disorders: NO Depression or Anxiety: no PAST MEDICAL HISTORY: No past medical history on file. Allergies Allergen Reactions Erythromycin Other Lincomycin Other PHYSICAL EXAM: BP (!) 147/96 Pulse 84 Ht 5' 4 (1.626 m) Wt 203 lb (92.1 kg) BMI 34.84 kg/m? This is an age appropriate appearing female who is alert and oriented x 3. The patient appears well nourished. Psychiatric: The patient is able to verbalize normally and seems to have a good understanding of her situation. right lower extremity examination Lymphatic System: No areas of swelling are seen Vascular: Dorsalis pedis pulse: 2+ Posterior tibial pulse: 2+ Capillary refill is less than 3 seconds Skin/nails: Normal appearance, warm and dry Hair growth present on foot and toes Neurologic: Sensation intact to light touch throughout the foot and the ankle Muscle: Muscle strength testing: Anterior tibialis: 5/5 Posterior tibialis: 0/5 Peroneus brevis: 5/5 Peroneus longus: 5/5 Gastrocsoleus: 5/5 In a standing position pes planus deformity of the right foot is noted with an abducted forefoot. The hindfoot is in valgus alignment. The hindfoot and midfoot deformities are passively correctable on exam. Unable to perform single-leg heel rise. No tenderness over the posterior tibial tendon although the tendon is not palpable. Gait and Station: Harriett is able to ambulate with a limp Harriett is able to stand unassisted and maintains balance RADIOGRAPHIC INTERPRETATION: 3 weight bearing views of the bilateral foot were obtained and the following is my interpretation of the findings present of the X-rays: Complete collapse of the longitudinal arch is noted. No signs of arthrosis of the hindfoot. On the AP view the talar head is uncovered at the talonavicular joint and the talar first metatarsal angle was 20 degrees. Left foot: Decrease in longitudinal arch height is noted although not as severe as on the right. Arthritic changes are noted to the midfoot most prominently at the navicular cuneiform and second tarsometatarsal joint level. The talar head is well covered on the AP view. REVIEW OF RELATED PREVIOUS DOCUMENTATION: Documents from Dr. Nichole were reviewed. LABORATORY RESULT INTERPRETATION: No labs were reviewed/No labs available for review DIAGNOSIS: Diagnosis Plan 1. Posterior tibial tendon dysfunction (PTTD) of right lower extremity Walker standard MEDICAL DECISION MAKING: I had a discussion with Harriett to make sure she has a good understanding of the diagnoses/issues that I think are present today and understands the plan moving forward. I had a long discussion with Harriett concerning her Right posterior tibial tendon dysfunction and went over the non-operative and operative options available in detail. I explained to Harriett that she has failed all of the available non-operative treatments and from my standpoint surgery is a reasonable option as a resul (more content not included)... [facility] Posterior tibial tendon dysfunction, right- Primary [facility] Diagnosis Posterior tibial tendon dysfunction (PTTD) of right lower extremity- Primary [facility] Diagnosis Posterior tibial tendon dysfunction (PTTD) of right lower extremity- Primary [facility] Diagnosis Posterior tibial tendon dysfunction (PTTD) of right lower extremity- Primary [facility] Diagnosis Posterior tibial tendon dysfunction (PTTD) of right lower extremity- Primary documented in this encounter [facility] Summary Purpose Family History No Family History Records Found Advance Directives No Advanced Directives Records Found Additional Source Comments Care Teams (unrecognized sec tion and content) Asset Management Lead Relationship Specialty Start Date End Date [address]k [address] [place] [address] PCP - General Nurse Practitioner 10/09/22 Asset Management Lead Relationship Specialty Start Date End Date Rk [address] [place] [address] PCP - General Nurse Practitioner 10/09/22 Asset Management Lead Relationship Specialty Start Date End Date [address]k [address] [place] [address] PCP - General Nurse Practitioner 10/09/22 Asset Management Lead Relationship Specialty Start Date End Date Rk [address] Arteaga AmYoni Family Phys [place], [place] [id number] PCP - General Nurse Practitioner 10/09/22 Asset Management Lead Relationship Specialty Start Date End Date [facility]k [address] [facility] [place], [place] [id number] PCP - General Nurse Practitioner 10/09/22 Reason for Visit (unrecogniz ed section and content) Referral ID Status Reason Start Date Expiration Date Visits Re quested Visits Authorized [id number] 1 Reason Comments Post-op Right foot Reason Comments Post-op Right foot triple Scheduled Active and Recently Administ ered Medications (unrecognized section and content) Continuous Medication Order 11/05/2022 11/06/2022 11/07/2022 lactated Ringer's infusion 50 mL/hr, IntraVENous, Continuous, Starting on Perla 11/07/22 at 0600, Preprocedure, Upon admission to sameday - please start iv if patient does not have iv access. Use 500ml NS for patients on dialysis. 0641 (New Bag - Prov ider: Caity Cross RN)0806 (Continued by Anesthesia - Provider: Mikala Bailon APRN - ARTURO)1047 (Stopped - Provider: BERTRAND Waggoner CRNA) lactated ringers infusion 125 mL/hr, IntraVENous, Continuous, Starting on Perla 11/07/22 at 0800, Recovery (only) 0800 (Canceled Entry - Provider: Automatic Discharge Provider - Comment: Automatically canceled at discontinue of medication order) PRN Medication Order 11/05/2022 11/06/2022 11/07/2022 diphenhydrAMINE (BENADryl) injection 12.5 mg 12.5 mg, IntraVENous, Once PRN, itching, Starting on Perla 11/07/22 at 0759, For 1 dose, Recovery (only) hydrALAZINE (Apresoline) injection 5 mg(Linked Group 1) 5 mg, IntraVENous, Every 15 min PRN, high blood pressure, for SBP greater than 160 mmHg for 2 consecutive measurements taken from different sites, Starting on Perla 11/07/22 at 0759, For 2 doses, Recovery (only), PRN for SBP > 160 for 2 consecutive measurements, and if one of the following conditions is met: 1) If IV labetolol is ineffective. 2) If HR is under 60. 3) If patient has heart block, COPD or asthma. If both labetalol and hydralazine ineffective, notify anesthesia provider. HYDROmorphone (Dilaudid) injection 0.25 mg 0.25 mg, IntraVENous, Every 5 min PRN, moderate pain (4-6), Starting on Perla 11/07/22 at 0759, For 4 doses, Recovery (only), Phase I and Phase II- Initial therapy for moderate pain (4-6). Restricted to a 90 minute time frame starting when the patient can verbally state their pain score. If after 2 doses the pain score does not decrease by more than one point, then call the provider. If oral meds are utilized, do not return to initial therapy medications. HYDROmorphone (Dilaudid) injection 0.5 mg 0.5 mg, IntraVENous, Every 5 min PRN, severe pain (7-10), Starting on Perla 11/07/22 at 0759, For 4 doses, Recovery (only), Phase I and Phase II- Initial therapy for moderate pain (4-6). Restricted to a 90 minute time frame starting when the patient can verbally state their pain score. If after 2 doses the pain score does not decrease by more than one point, then call the provider. If oral meds are utilized, do not return to initial therapy medications. labetalol (Normodyne,Trandate) injection 5 mg(Linked Group 1) 5 mg, IntraVENous, Every 10 min PRN, high blood pressure, for SBP greater than 160 mmHg for 2 consecutive measurements taken from different sites., Starting on Perla 11/07/22 at 0759, For 2 doses, Recovery (only), PRN for SBP >160 for 2 consecutive measurements, if HR is 60 or greater. If beta dimas is contraindicated (HR less than 60, heart block, COPD or asthma) use hydralazine IV order. LORazepam (Ativan) injection 0.5 mg 0.5 mg, IntraVENous, Once PRN, for anxiety or muscle spasm., Starting on Perla 11/07/22 at 0759, For 1 dose, Recovery (only), For IV doses dilute dose with 1ml NS. metoclopramide (Reglan) injection 5 mg 5 mg, IntraVENous, Once PRN, nausea, Starting on Perla 11/07/22 at 0759, For 1 dose, Recovery (only), Secondary antiemetic therapy. Notify anesthesia provider before administration. midazolam (Versed) injection 2 mg 2 mg, IntraVENous, PRN, anxiety, administration per anesthesiologist direction. Up to two mg., Starting on Perla 11/07/22 at 0715, Preprocedure, Pull 2 mg vial of midazolam draw up for anesthesia block placement with administration per anesthesiologist direction. 0733 (Given - Provid er: Shayna Vieyra RN) ondansetron (Zofran) injection 4 mg 4 mg, IntraVENous, Once PRN, nausea, Starting on Perla 11/07/22 at 0759, For 1 dose, Recovery (only), Initial antiemetic therapy. oxyCODONE (Roxicodone) immediate release tablet 10 mg(Linked Group 2) 10 mg, Oral, PRN, severe pain (7-10), Starting on Perla 11/07/22 at 0759, For 1 dose, Recovery (only), PHASE II oxyCODONE (Roxicodone) immediate release tablet 5 mg(Linked Group 2) 5 mg, Oral, PRN, moderate pain (4-6), Starting on Perla 11/07/22 at 0759, For 1 dose, Recovery (only), PHASE II sodium chloride 0.9 % infusion 5-250 mL/hr, IntraVENous, PRN, if patient receiving piggyback infusions and maintenance fluids are not ordered OR KVO fluids to protect IV site / prevent frequent line interruptions / long duration, Starting on Perla 11/07/22 at 0558, Preprocedure, For piggyback infusion, administer at same rate as piggyback for a total of 25 mL. Enter 25 mL into dose field and piggyback rate into rate field of order. If piggyback is infusing at a rate less than 100 mL/hr, enter 25 mL into dose field and 100 mL/hr into rate field of order. For KVO fluids, enter rate of 20 mL/hr or less into rate field of order. sodium chloride 0.9 % infusion 5-250 mL/hr, IntraVENous, PRN, if patient receiving piggyback infusions and maintenance fluids are not ordered OR KVO fluids to protect IV site / prevent frequent line interruptions/ long duration, Starting on Perla 11/07/22 at 0558, Preprocedure, For piggyback infusion, administer at same rate as piggyback for a total of 25 mL. Enter 25 mL into dose field and piggyback rate into rate field of order. If piggyback is infusing at a rate less than 100 mL/hr, enter 25 mL into dose field and 100 mL/hr into rate field of order. For KVO fluids, enter rate of 20 mL/hr or less into rate field of order. sodium chloride 0.9 % irrigation solution (CANCELED) As needed, Starting on Perla 11/07/22 at 0925, Intraprocedure 0925 (Given - Provid er: Lacey Mendoza MD) sodium chloride 0.9% (NS) flush 10 mL 10 mL, IntraVENous, PRN, line care, Starting on Perla 11/07/22 at 0558, Preprocedure, After every IV line use sodium chloride 0.9% (NS) flush 5-40 mL 5-40 mL, IntraVENous, PRN, line care, After every IV line use, Starting on Perla 11/07/22 at 0558, Preprocedure, For Line Patency: Peripheral IV = 5 mL; Midline or Central Line = 10 mL/lumen. If following IV push medication, administer flush at same rate as the IV push. Flush volume is determined by type of infusion therapy being given. For non-viscous solutions use: Peripheral IV = 5 mL Midline or Central Line = 10 mL/lumen For viscous solutions (i.e. blood components, parenteral nutrition, contrast media, or after obtaining blood sample) use: Peripheral IV = 10 mL Midline or Central Line = 20 mL/lumen Linked Groups Order Group 1: labetalol (Normodyne,Trandate) injection 5 mgJump to med 5 mg, IntraVENous, Every 10 min PRN, high blood pressure, for SBP greater than 160 mmHg for 2 consecutive measurements taken from different sites., Starting on Perla 11/07/22 at 0759, For 2 doses, Recovery (only)
PRN for SBP >160 for 2 consecutive measurements, if HR is 60 or greater. If beta dimas is contraindicated (HR less than 60, heart block, COPD or asthma) use hydralazine IV order.
Or hydrALAZINE (Apresoline) injection 5 mgJump to med 5 mg, IntraVENous, Every 15 min PRN, high blood pressure, for SBP greater than 160 mmHg for 2 consecutive measurements taken from different sites, Starting on Perla 11/07/22 at 0759, For 2 doses, Recovery (only)
PRN for SBP > 160 for 2 consecutive measurements, and if one of the following conditions is met: 1) If IV labetolol is ineffective. 2) If HR is under 60. 3) If patient has heart block, COPD or asthma. If both labetalol and hydralazine ineffective, notify anesthesia provider.
Group 2: oxyCODONE (Roxicodone) immediate release tablet 5 mgJump to med 5 mg, Oral, PRN, moderate pain (4-6), Starting on Perla 11/07/22 at 0759, For 1 dose, Recovery (only)
PHASE II
Or oxyCODONE (Roxicodone) immediate release tablet 10 mgJump to med 10 mg, Oral, PRN, severe pain (7-10), Starting on Perla 11/07/22 at 0759, For 1 dose, Recovery (only)
PHASE II
INFORMATION SOURCE (unrecogn ized section and content) FOR RECORDS PERTAINING TO PATIENTS WHO ARE OR HAVE BEEN ENROLLED IN A CHEMICAL DEPENDENCY/SUBSTANCEABUSE PROGRAM, SOME INFORMATION MAY BE OMITTED. This clinical summary was aggregated from multiple sources. Caution should be exercised in using it in the provision of clinical care. This summary normalizes information from multiple sources, and as a consequence, information in this document may materially change the coding, format and clinical context of patient data. In addition, data may be omitted in some cases. CLINICAL DECISIONS SHOULD BE BASED ON THE PRIMARY CLINICAL RECORDS. [facility] [employer] [facility]. provides no warranty or guarantee of the accuracy or completeness of information in this document.
[2023-04-07 08:28] LABS: Absolute Lymphocyte Count 2.64 X10^3/uL (0.83-4.51); Absolute Neutrophil Count 3.8 X10^3/uL (2.0-7.7); Basophil# 0.07 X10^3/uL; Eosinophil# 0.14 X10^3/uL; Eosinophils% 1.9 % (0-5); Hematocrit 37.4 % (37-47); Hemoglobin 12.5 g/dL (12.0-15.0); Lymphocyte # 2.64 X10^3/ul (0.83-4.51); Lymphocyte % 36.2 % (19-41); Mean Corp Hgb Conc 33.4 g/dL (32-36); Mean Corpuscular Hgb 29.6 pg (27.0-32.0); Mean Corpuscular Volume 88.6 fL (81-99); Mean Platelet Vol. 10.2 fl (6.2-12.0); Monocyte# 0.59 X10^3/uL; Monocyte% 8.1 % (0-10); NRBC Flagged by Analyzer 0 % (0-5); Neutrophil # 3.82 X10^3/uL (2.7-7.7); Neutrophil % 52.3 % (47-70); Platelet Count 353 K/mm3 (150-450); RBC Distribution Width SD 42.2 fl (35.1-43.9); Red Blood Count 4.22 M/mm3 (4.2-5.4); White Blood Count 7.3 K/mm3 (4.4-11.0)
[2023-04-07 09:39] LABS: Albumin, Serum 4.1 g/dL (3.2-5.0); Anion Gap 7 (5-15); BUN 21 mg/dL (7-18); BUN/Creat Ratio 18.6 RATIO (10-20); Calcium,Total 10.4 mg/dL (8.5-10.1); Chloride 105 mmol/L (98-107); Creatinine, Serum 1.13 mg/dL (0.55-1.02); EST Glomerular Filtration Rate 52 mL/min (>60); Est Glom Filt Rate - Afr Amer 63 mL/min (>60); Glucose 95 mg/dL (74-106); Potassium 3.8 mmol/L (3.5-5.1); Sodium Level 139 mmol/L (136-145)
== END | disposition home or self-care (01) ==
LOC: LAB 07:41
PROVIDERS: PCP Nurse Practitioner Family; Referring Provider Student in an Organized Health Care Education/Training Program; Visit Provider Student in an Organized Health Care Education/Training Program
DX: Z01.818 Encounter for other preprocedural examination (principal)
CPT/HCPCS: 36415; 80048; 82040; 85025

== ENCOUNTER → 2023-04-16 | Outpatient (CLI) | payer OTHER, SELFPAY ==
--- NOTE | 2023-04-16 07:55 | EKG12_ITS ---
Test Reason : PRE-OP Blood Pressure : / mmHG Vent. Rate : 091 BPM Atrial Rate : 091 BPM P-R Int : 170 ms QRS Dur : 076 ms QT Int : 332 ms P-R-T Axes : 031 -18 060 degrees QTc Int : 408 ms Normal sinus rhythm Anterolateral infarct , age undetermined Abnormal ECG Confirmed by LEYLA RODRIGUEZ, SAEID ([id number]), editorial director KACI HYDE ([id number]) on 04/17/2023 6:21:53 AM Referred By: Samy Sánchez Confirmed By:SAEID MAYER MD
--- NOTE | 2023-04-16 07:56 | CT_ITS ---
CT RIGHT LOWER EXTREMITY WITH 3-D IMAGING CLINICAL INDICATION: PRE OP WAS TECHNIQUE: Axial CT images of the RIGHT lower extremity was performed without IV contrast material. Coronal and sagittal reformats were provided. RADIATION DOSAGE (If Supplied By Facility): CTDIvol = ( 19.33 ) mGy, DLP = ( 1175.77 ) mGycm COMPARISON: FINDINGS: Bones: Imaging of the right hip joint was obtained. Small acetabular spur. No significant joint space narrowing is seen. Imaging of the right knee joint was obtained. Moderate degree of joint space narrowing of the lateral compartment of knee joint with degenerative spur formation of the distal femur and proximal tibia. Mild degree of the joint space narrowing involving the medial compartment of knee joint. Moderate degree of joint space narrowing of the patellofemoral joint. Imaging of the ankle joint was obtained. The patient is status post fusion of the talocalcaneal joint as well as the talus and first cuneiform bones. There is fusion of the articular surfaces. The ankle mortise is intact. Soft Tissues: The deep soft tissue structures are unremarkable. The superficial soft tissues are unremarkable without evidence of edema, hematoma, or foreign body. CT/Extremity Lower without Contra IMPRESSION: Degenerative changes of the right knee joint as described. Prior surgical intervention involving the hindfoot. Electronically Signed: Santos Mishra MD at 9:41 EST ,
--- OUTSIDE RECORDS SUMMARY | 2023-04-16 08:12 | XMS RPT_ITS | CCD ---
Author Name Unknown Address [address] [place] [address] Organization [facility] Care Team Providers Care Gas Charger Name Role Phone Unavailable Primary Care Provider UnavailRk Najera Primary Care Provider LACEY MENDOZA Admitting Unavailable LACEY MENDOZA Attending Unavailable DEMI, RK Primary Care Unavailable LACEY MENDOZA Referring Unavailable RK ADRIAN Primary Care Unavailable LACEY MENDOZA Attending Unavailable [...] (8 sources) Erythromycin Drug Allergy 02-05-2018 Other [facility] (8 sources) Lincomycin Drug Allergy 02-05-2018 Other [facility] Medications Current Medications Medication Drug Class(es) [...] every week ergocalciferol (Vitamin D2) 1.25 MG (21424 UT) capsule Indications: Posterior tibial tendon dysfunction, [...] 90 mm[Hg] Lacey Mendoza MD Work Phone: [employer] 01-29-2023 13:53-0500 Heart rate 93 /min Lacey Mendoza MD Work Phone: [employer] 01-29-2023 13:53-0500 Systolic blood pressure 138 mm[Hg] Lacey Mendoza MD Work Phone: [employer] 12-18-2022 14:44-0400 Body height 162.6 cm Austin PETER Work Phone: [employer] 12-18-2022 14:44-0400 Body mass index (BMI) [Ratio] 35.87 kg/m2 Austin PETER Work Phone: [employer] 12-18-2022 14:44-0400 Body weight 94.8 kg Austin PETER Work Phone: [employer] 11-07-2022 11:45-0400 Body temperature 97.11 [degF] Lacey Mendoza MD Work Phone: [employer] 11-07-2022 11:45-0400 Diastolic blood pressure 78 mm[Hg] Lacey Mendoza MD Work Phone: [employer] 11-07-2022 11:45-0400 Heart rate 74 /min Lacey Mendoza MD Work Phone: [facility] 11-07-2022 11:45-0400 Respiratory rate 16 /min Lacey Mendoza MD Work Phone: [facility] 11-07-2022 11:45-0400 SaO2% (BldA) [Mass fraction] 98 % Lacey Mendoza MD Work Phone: [facility] 11-07-2022 11:45-0400 Systolic blood pressure 122 mm[Hg] Lacey Mendoza MD Work Phone: [facility] 11-07-2022 06:28-0400 Body height 162.6 cm Lacey Mendoza MD Work Phone: [facility] 11-07-2022 06:28-0400 Body mass index (BMI) [Ratio] 35.87 kg/m2 Lacey Mendoza MD Work Phone: [facility] 11-07-2022 06:28-0400 Body weight 94.8 kg Lacey Mendoza MD Work Phone: [facility] Encounters Encounter Date Encounter Type Care Provider Facility Start: 01-29-2023 End: 01-29[facility] [facility] Start: 01-29-2023 End: 01-29-2023 Postop follow up visit related to original px Lacey Mendoza MD Work Phone: [facility] Procedures Date Procedure Procedure Detail Performing Clinician Start: 11-07-2022 FL GUIDANCE OR USE O NLY - NON-RESULTABLE Lacey Mendoza MD Work Phone: Plan of Treatment Date Care Activity Detail Author Start: 01-29-2023 End: 01-29-2023 Patient encounter procedure 01/29/2023 2:00 PM EST Office Visit [facility] [address] [place] [address] Lacey Mendoza MD [address] [place] [address] [facility] Start: 01-29-2023 End: 12-21-2023 XR Foot - right 3 Views XR foot 3+ views right Imaging Routine Posterior tibial tendon dysfunction (PTTD) of right lower extremity Expected: 01/29/2023, Expires: 12/21/2023 [facility] Work Phone: Immunizations Immunization Date Immunization Notes Care Provider Fa cility 12-22-2020 influenza virus vacc ine, unspecified formulation Austin PETER Work Phone: [facility] Payers Date Payer Category Payer Unknown [employer] [facility] [id number] 2022-Present [address] [place] [address] Commercial [id number] 2022 Unknown [id number] Social History Date Type Detail Facility Tobacco smoking stat [facility] Tobacco smoking consumption unknown [facility] Start: 1960 Sex Assigned At Not on file [facility] Start: 10-09-2022 End: 11-07-2022 Gender identity Not on file [facility] Start: 10-09-2022 Tobacco smoking stat [facility] Never smoked tobacco [facility] Start: 10-09-2022 Tobacco use and exposure Smokeless t obacco non-user [facility] Start: 10-09-2022 End: 11-07-2022 History of Social function [facility] Start: 11-07-2022 Alcohol intake Ex-drinker (finding) [facility] Start: 10-28-2022 End: 11-07-2022 Exposure to SARS-CoV-2 (event) Not sure [facility] Medical Equipment Procedure Code Equipment Code Equipment Origin al Text Equipment Identifier Dates Graft Bn Osteoce l Plus 5cc - [id number] - [id number] Start: 11-07-2022 Plate X Va-Lock 2.4/2.7mm - [id number] Start: 11-07-2022 Screw Lck Va 2.5c75v-S T8 Rcs - [id number] Start: 11-07-2022 Clinical Notes 10-09-2022 to 01-29-2023 Lacey Mendoza MD - 01/29/2023 2:00 PM ROME Avila - 12/18/2022 3:00 PM EDTPerioperative Nursing Note - Lisa Johnson RN - 11/07/2022 12:00 PM EDTDischarge InstructionsDischarge Instr - Diet Note Date & Type Note Facility 01-29-2023 History of Presen t illness Narrative Images from the original note were not included. [facility] [address] [place] [address] [place] [phone] Dept: [phone] Dept Harriett Dueñas 1960 [id number] 01/29/2023 HISTORY OF PRESENT ILLNESS: Harriett is [...] improve. Electronically signed by Lacey Mendoza MD [facility] Department of Orthopedic surgery 01/29/2023 4:22 PM Voice recognition was used for portions of this note and although it was reviewed prior to signing some incorrect words or phrases could be present. documented in this encounter [facility] 12-18-2022 History of Presen t illness Narrative Images from the original note were not included. [facility] [address] [place] [address] [place] [phone] Dept: [phone] Dept Harriett [facility] 1960 [id number] 12/18/2022 HISTORY OF PRESENT ILLNESS: Harriett is [...] Imaging, Post-Op. Electronically signed by ROME Roberto [facility] Department of Orthopedic surgery 12/18/2022 4:35 PM Voice recognition was used for portions of this note and although it was reviewed prior to signing some incorrect words or phrases could be present. documented in this encounter [facility] 11-07-2022 Note Patient: Harriett hess Procedure Summary Date: 11/07/22 Room / Location: [address] Operating Room Anesthesia Start: 805 Anesthesia [...] once all PACU criteria has been met. [facility] 11-07-2022 Note Patient: Harriett hess Procedure Summary Date: 11/07/22 Room / Location: [address] Operating Room Anesthesia Start: 805 Anesthesia Stop: 1107 Procedures: RIGHT TRIPLE ARTHRODESIS AND ACHILLES TENDON LENGTHENING (Right: Foot) LENGTHENING OR SHORTENING OF TENDON LEG OR ANKLE (Right: Leg Lower) Diagnosis: Posterior tibial tendinitis, right leg (Posterior tibial tendinitis, right leg [M76.821]) Surgeons: Lacey Mendoza MD Responsible Provider: Sctot Thibodeaux Jr., MD Anesthesia Type: general, regional [...] opportunity for questions and acknowledgement of understanding. [facility] 11-07-2022 Miscellaneous Notes Written discharge instructions reviewed [...] lift leg off bed. Belongings retrieved from [employer]. Pre-operative Diagnosis: Right posterior tibial tendon rupture [...] to normal structures that can lead to vermin exterminator problems of pain or dysfunction, wound healing [...] patient's ASA was verified by the nurse carrier operator and the anesthesia staff. Fire risk was [...] surfaces of the calcaneocuboid joint. A lamina captain fire prevention bureau was placed both in the subtalar joint [...] was in approximately 5 of valgus and rastafari of the longitudinal arch height was present. [...] week post-op visit. documented in this encounter [facility] 11-07-2022 Note Formatting of this n ote might be different from the original. Written discharge instructions reviewed with pt mom and brother. Questions answered. [facility] 11-07-2022 Note Formatting of this n ote might be different from the original. Assisted into wheelchair to use restroom. Able to maintain non weight bearing. Provided with crutches has knee scooter at home and ramp. Crutches adjusted to height and measured. States she has walker and has been practicing. [facility] 11-07-2022 Note Formatting of this n ote might be different from the original. Received pt from OR to recovery phase 1 arouses easily to name and denies pain is able to move toes and lift leg off bed. Belongings retrieved from [employer]. T [facility] 11-07-2022 Note Airway Date/Time: 11/07/2022 8:23 AM Urgency: scheduled Airway not difficult General Information and Staff Patient location during procedure: Procedural Resident/TELEGRAPH MECHANIC: BERTRAND Waggoner CRNA Performed: TELEGRAPH MECHANIC Performed by: BERTRAND Waggoner CRNA Authorized by: [...] of glottis only Placement verified by: capnometry [facility] 11-07-2022 Note Peripheral Block Time Out: 11/07/2022 [...] monitoring: heart rate, continuous pulse ox and monitoring tech O2: Room air Laterality: right Injection technique: [...] No paresthesias reported by patient during injection [facility] 11-07-2022 Note H&P reviewed. The pa tient was examined and there are no changes to the H&P. [facility] 11-07-2022 Note Formatting of this n ote [...] to normal structures that can lead to nursing home problems of pain or dysfunction, wound healing [...] patient's ASA was verified by the nurse carrier operator and the anesthesia staff. Fire risk was [...] surfaces of the calcaneocuboid joint. A lamina captain fire prevention bureau was placed both in the subtalar joint [...] was in approximately 5 of valgus and rastafari of the longitudinal arch height was present. [...] foot at the 6 week post-op visit. [facility] Phone: 11-07-2022 Hospital Discharg e instructions ROME Roberto - 11/07/2022 7:36 AM EDT Images from the original note were not included. SPLINT INSTRUCTIONS Keep your splint clean and dry. Do not put anything down in the splint to scratch. If your splint gets wet or starts to feel uncomfortable call Dr Mendoza immediately ([phone]). If you see any blood on the outside bandage reinforce it on the surface with gauze and an celeste bandage and call Dr Mendoza [phone]. Do not walk or stand on your [...] recreational drugs while taking the narcotic medication.[facility] restricts the amount of pain pills that [...] water in it, call Dr. Mendoza's office ([phone]) immediately and you will be instructed which [...] moving around during the day, let Dr Mendoza know. ROME Roberto - 11/07/2022 7:36 AM [...] sent through Care Everywhere.General Anesthesia Discharge Instructions (Swedish)documented in this encounter [facility] 11-07-2022 Attending History and physical note H&P reviewed. The patient was examined and there are no changes to the H&P. Source Note - Lacey Mendoza MD - 10/09/2022 10:30 AM EDT Images from the original note were not included. [facility] [address] [place] [phone] Dept: [phone] Dept Harriett [employer] 1960 [id number] 10/09/2022 HISTORY OF PRESENT ILLNESS: Harriett is a 62 y.o. female here today for evaluation of her right foot. 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 I explained to Harriett that surgery can potentially make their condition worse or can lead to other unexpected problems that can have vermin exterminator effects on their function or comfort. In [...] scheduled. Electronically signed by Lacey Mendoza MD [facility] Department of Orthopedic surgery 10/09/2022 12:32 PM Voice recognition was used for portions of this note and although it was reviewed prior to signing some incorrect words or phrases could be present. [facility] 11-07-2022 History and physical note H&P reviewed. The patient was examined and there are no changes to the H&P. Source Note - Lacey Mendoza MD - 10/09/2022 10:30 AM EDT Images from the original note were not included. [facility] [address] [place] [address] [place] [phone] Dept: [phone] Dept Harriett [employer] 1960 [id number] 10/09/2022 HISTORY OF PRESENT ILLNESS: Harriett is a 62 y.o. female here today for evaluation of her right foot. 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 I explained to Harriett that surgery can potentially make their condition worse or can lead to other unexpected problems that can have nursing home effects on their function or comfort. In [...] scheduled. Electronically signed by Lacey Mendoza MD [facility] Department of Orthopedic surgery 10/09/2022 12:32 PM Voice recognition was used for portions of this note and although it was reviewed prior to signing some incorrect words or phrases could be present. documented in this encounter [facility] 10-31-2022 Note Patient: Harriett hess Procedure Information Date/Time: 11/07/22 0800 Procedures: RIGHT TRIPLE ARTHRODESIS AND ACHILLES TENDON LENGTHENING (Right: Foot) - 3 hours LENGTHENING OR SHORTENING OF TENDON LEG OR ANKLE (Right: Leg Lower) Location: [address] Operating Room Surgeons: Lacey Mendoza MD Relevant Problems No relevant active [...] Electronically Signed On 11-02-2022 17:17:52 EDT by [facility] 10-31-2022 Note Comprehensive PreSur gical History and Physical ? Name: Harriett Dueñas : 1960 (Age-62 y.o.) Date of Service: Pt seen/examined on 10/31/2022 Procedure Information Date/Time: 11/07/22 0800 Procedures: RIGHT TRIPLE ARTHRODESIS AND ACHILLES TENDON LENGTHENING (Right: Foot) - 3 hours LENGTHENING OR SHORTENING OF TENDON LEG OR ANKLE (Right: Leg Lower) Location: [address] Operating Room Surgeons: Lacey Mendoza MD [...] flat foot deformity corrected first. 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 - [...] focal deficit presen (more content not included)... [facility] 10-31-2022 Note Comprehensive PreSur gical History and Physical ? Name: Harriett Dueñas : 1960 (Age-62 y.o.) Date of Service: Pt seen/examined on 10/31/2022 Procedure Information Date/Time: 11/07/22 0800 Procedures: RIGHT TRIPLE ARTHRODESIS AND ACHILLES TENDON LENGTHENING (Right: Foot) - 3 hours LENGTHENING OR SHORTENING OF TENDON LEG OR ANKLE (Right: Leg Lower) Location: [address] Operating Room Surgeons: Lacey Mendoza MD [...] flat foot deformity corrected first. 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 - [...] focal deficit presen (more content not included)... [facility] 10-11-2022 Note Procedure: right Tri ple arthrodesis (74076) and Achilles tendon lengthening (48499) CPT codes: see above Diagnosis: No primary diagnosis found. Location for Surgery: Any location (patient choice) Schedule for: 3 hours Admission Type: Outpatient Medical Clearance: No Antibiotic: Ancef 2g IV Anesthesia: Popliteal block (single shot) + General Position and Table type: Supine on Regular OR table Radiology: Big C-arm Implants: Synthes 4.5 mm headless compression screws, Synthes 6.5 mm headless compression screws, and [employer] midfoot plates Equipment: Reji specials tray, Osteotomes, Synthes Foot Distractor, TPS, and Lamina Spreaders [facility] 10-09-2022 Note SURGERY SCHEDULING S HEET Procedure: right Triple arthrodesis (19857) and Achilles tendon lengthening (63573) CPT codes: see above Diagnosis: No primary [...] Synthes Foot Distractor, TPS, and Lamina Spreaders [facility] 10-09-2022 Note [facility] [address] [place] [address] [place] [phone] Dept: [phone] Dept Harriett Dueñas 1960 [id number] 10/09/2022 HISTORY OF PRESENT ILLNESS: Harriett is a 62 y.o. female here today for evaluation of her right foot. 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 [facility] Posterior tibial tendon dysfunction, right- Primary [facility] Diagnosis Posterior tibial tendon dysfunction (PTTD) of right lower extremity- Primary [facility] Diagnosis Posterior tibial tendon dysfunction (PTTD) of right lower extremity- Primary [facility] Diagnosis Posterior tibial tendon dysfunction (PTTD) of right lower extremity- Primary [facility] Diagnosis Posterior tibial tendon dysfunction (PTTD) of right lower extremity- Primary documented in this encounter [facility] Summary Purpose Family History No Family History Records Found Advance Directives No Advanced Directives Records Found Additional Source Comments Care Teams (unrecognized sec tion and content) Gas Charger Relationship Specialty Start Date End Date Rk Adrian [address] [place] [address] PCP - General Nurse Practitioner 10/09/22 Gas Charger Relationship Specialty Start Date End Date Rk Adrian [address] [place] [address] PCP - General Nurse Practitioner 10/09/22 Gas Charger Relationship Specialty Start Date End Date Rk Adrian [address] [place] [address] PCP - General Nurse Practitioner 10/09/22 Gas Charger Relationship Specialty Start Date End Date Rk Adrian [address] Arteaga [facility] [place], [place] [address] PCP - General Nurse Practitioner 10/09/22 Gas Charger Relationship Specialty Start Date End Date Rk Adrian [address] [facility] [place], [place] [address] PCP - General Nurse Practitioner 10/09/22 Reason for Visit (unrecogniz ed section and content) Referral ID Status Reason Start Date Expiration Date Visits Re quested Visits Authorized [id number] 1 1 Reason Comments Post-op Right foot [...] BE BASED ON THE PRIMARY CLINICAL RECORDS. [facility] [employer] [facility]. provides no warranty or guarantee of the accuracy or completeness of information in this document.
== END | disposition home or self-care (01) ==
PROVIDERS: PCP Nurse Practitioner Family; Referring Provider Student in an Organized Health Care Education/Training Program; Visit Provider Student in an Organized Health Care Education/Training Program
DX: Z01.810 Encounter for preprocedural cardiovascular examination (principal); Z01.818 Encounter for other preprocedural examination; M17.11 Unilateral primary osteoarthritis, right knee; M21.061 Valgus deformity, not elsewhere classified, right knee
CPT/HCPCS: 73700; 93005

== ENCOUNTER → 2023-04-25 | Outpatient (CLI) | payer OTHER, SELFPAY ==
--- NOTE | 2023-04-25 08:40 | ECHOD_ITS ---
Reason For Study: ABNORMAL EKG Procedure This was a 2D Doppler, Color Flow transthoracic echocardiogram. Exam performed in department. Left Ventricle Normal LV size. The estimated ejection fraction is 55 %. No evidence for diastolic dysfunction. No regional wall motion abnormalities noted. Right Ventricle Normal RV size. Normal systolic function. Atria Normal left atrium. Normal right atrium. Bubble study is positive for right to left shunt that appears to be at the atrial level. Mitral Valve There is no mitral valve stenosis. No mitral valve insufficiency. Tricuspid Valve There is no tricuspid stenosis. Trivial tricuspid valve insufficiency. Pulmonary artery systolic pressure is 20-25 mmHg. Aortic Valve Trisinus/trileaflet aortic valve. There is no aortic stenosis. No aortic valve insufficiency. Pulmonic Valve There is no pulmonic valvular stenosis. No pulmonic valve insufficiency. Great Vessels Normal aortic root. Pericardium/Pleural No pericardial effusion. Medication 22 gauge I.V. with prn adaptor inserted into right arm. Performed a rapid injection of agitated mix of 9 cc saline and 1cc air to assess for atrial septal defect. MMode/2D Measurements & Calculations LVIDd: 4.3 cm IVSd: 0.73 cm Ao root diam: 3.3 cm LVIDs: 3.0 cm LVPWd: 0.79 cm RVDd: 3.6 cm FS: 31.7 % LAV(MOD-bp): 43.2 ml LVAd ap4: 29.8 cm2 SV(MOD-sp4): 47.0 ml LAV(MOD-bp) Indexed: 21.9 ml/m2 LVLd ap4: 8.4 cm LAV(MOD-sp2): 44.6 ml EDV(MOD-sp4): 87.5 ml LAV(MOD-sp4): 41.3 ml EDV(sp4-el): 89.7 ml LVAs ap4: 18.5 cm2 LVLs ap4: 7.1 cm ESV(MOD-sp4): 40.5 ml ESV(sp4-el): 41.0 ml EF(MOD-sp4): 53.7 % EF(sp4-el): 54.3 % SV(sp4-el): 48.8 ml LA A4 area: 16.8 cm2 LA dimension(2D): 2.8 cm RA A4 area: 14.7 cm2 TAPSE: 2.0 cm Time Measurements MV dec time: 0.23 sec Doppler Measurements & Calculations MV E max mat: 65.4 cm/sec Lat Peak E' Mat: 10.9 cm/sec Med Peak E' Mat: 7.5 cm/sec MV A max mat: 86.7 cm/sec E/E' lat: 6.0 E/E' med: 8.7 MV E/A: 0.75 Ao V2 max: 137.9 cm/sec LV V1 max: 113.1 cm/sec PA V2 max: 109.9 cm/sec Ao max P.6 mmHg LV V1 max P.1 mmHg TR max mat: 230.9 cm/sec TR max P.3 mmHg ECHO/Echo Complete Interpretation Summary The estimated ejection fraction is 55 %. No evidence for diastolic dysfunction. Bubble study is positive for right to left shunt that appears to be at the atri al level Ordering Physician: Rk Adrian Referring Physician: Rk Adrian Performed By: Magalys Easley RDCS
--- OUTSIDE RECORDS SUMMARY | 2023-04-25 09:04 | XMS RPT_ITS | CCD ---
Author Name Unknown Address [address] [place] [address] Organization [facility] Care Team Providers Care Application Development Intern Name Role Phone Unavailable Primary Care Provider [...] (8 sources) Erythromycin Drug Allergy 02-05-[address] [facility] (8 sources) Lincomycin Drug Allergy 02-05-[address] [facility] Medications Current Medications Medication Drug Class(es) Dates [...] every week ergocalciferol (Vitamin D2) 1.25 MG (37953 UT) capsule Indications: Posterior tibial tendon dysfunction, [...] 90 mm[Hg] Lacey Mendoza MD Work Phone: [employer] 01-29-2023 13:53-0500 Heart rate 93 /min Lacey Mendoza MD Work Phone: [employer] 01-29-2023 13:53-0500 Systolic blood pressure 138 mm[Hg] Lacey Mendoza MD Work Phone: [employer] 12-18-2022 14:44-0400 Body height 162.6 cm Austin PETER Work Phone: [employer] 12-18-2022 14:44-0400 Body mass index (BMI) [Ratio] 35.87 kg/m2 Austin PETER Work Phone: [employer] 12-18-2022 14:44-0400 Body weight 94.8 kg Austin PETER Work Phone: [employer] 11-07-2022 11:45-0400 Body temperature 97.11 [degF] Lacey Mendoza MD Work Phone: [employer] 11-07-2022 11:45-0400 Diastolic blood pressure 78 mm[Hg] Lacey Mendoza MD Work Phone: [employer] 11-07-2022 11:45-0400 Heart rate 74 /min Lacey Mendoza MD Work Phone: [facility] 11-07-2022 11:45-0400 Respiratory rate 16 /min Lacey Mendoza MD Work Phone: [facility] 11-07-2022 11:45-0400 SaO2% (BldA) [Mass fraction] 98 % Lacey Mendoza MD Work Phone: [facility] 11-07-2022 11:45-0400 Systolic blood pressure 122 mm[Hg] Lacey Mendoza MD Work Phone: [facility] 11-07-2022 06:28-0400 Body height 162.6 cm Lacey Mendoza MD Work Phone: [facility] 11-07-2022 06:28-0400 Body mass index (BMI) [Ratio] 35.87 kg/m2 Lacey Mendoza MD Work Phone: [facility] 11-07-2022 06:28-0400 Body weight 94.8 kg Lacey Mendoza MD Work Phone: [facility] Encounters Encounter Date Encounter Type Care Provider Facility Start: 01-29-2023 End: 01-29-[facility] Start: 01-29-2023 End: 01-29-2023 Postop follow up visit related to original px Lacey Mendoza MD Work Phone: [facility] Procedures Date Procedure Procedure Detail Performing Clinician Start: 11-07-2022 FL GUIDANCE OR USE O NLY - NON-RESULTABLE Lacey Mendoza MD Work Phone: Plan of Treatment Date Care Activity Detail Author Start: 01-29-2023 End: 01-29-2023 Patient encounter procedure 01/29/2023 2:00 PM EST Office Visit [facility] [address] [facility] [address] [place] [address] Lacey Mendoza MD [address] [facility] [address] [place] [address] [facility] Start: 01-29-2023 End: 12-21-2023 XR Foot - right 3 Views XR foot 3+ views right Imaging Routine Posterior tibial tendon dysfunction (PTTD) of right lower extremity Expected: 01/29/2023, Expires: 12/21/[address] [facility] Work Phone: Immunizations Immunization Date Immunization Notes Care Provider Fa cility 12-22-2020 influenza virus vacc ine, unspecified formulation Austin PETER Work Phone: [facility] Payers Date Payer Category Payer Unknown [employer] [facility] [id number] 2022-Present [address] [place] [address] Commercial [id number] 2022 Unknown [id number] Social History Date Type Detail Facility Tobacco smoking stat [facility] Tobacco smoking consumption unknown [facility] Start: 1960 Sex Assigned At Not on file [facility] Start: 10-09-2022 End: 11-07-2022 Gender identity Not on file [facility] Start: 10-09-2022 Tobacco smoking stat [facility] Never smoked tobacco [facility] Start: 10-09-2022 Tobacco use and exposure Smokeless t obacco non-user [facility] Start: 10-09-2022 End: 11-07-2022 History of Social function [facility] Start: 11-07-2022 Alcohol intake Ex-drinker (finding) [facility] Start: 10-28-2022 End: 11-07-2022 Exposure to SARS-CoV-2 (event) Not sure [facility] Medical Equipment Procedure Code Equipment Code Equipment Origin al Text Equipment Identifier Dates Graft Bn Osteoce l Plus 5cc - [id number] - [id number] Start: 11-07-2022 Plate X Va-Lock 2.4/2.7mm - [id number] Start: 11-07-2022 Screw Lck Va 2.8w86q-U T8 Rcs - [id number] Start: 11-07-2022 Clinical Notes 10-09-2022 to 01-29-2023 Lacey Mendoza MD - 01/29/2023 2:00 PM ROME Avila - 12/18/2022 3:00 PM EDTPerioperative Nursing Note - Lisa Johnson RN - 11/07/2022 12:00 PM EDTDischarge InstructionsDischarge Instr - Diet Note Date & Type Note Facility 01-29-2023 History of Presen t illness Narrative Images from the original note were not included. [facility] [address] [place] [address] [place] [phone] Dept: [phone] Dept Harriett Dueñas 1960 [id number] 01/29/2023 HISTORY OF PRESENT ILLNESS: Harriett is [...] improve. Electronically signed by Lacey Mendoza MD [facility] Department of Orthopedic surgery 01/29/2023 4:22 PM Voice recognition was used for portions of this note and although it was reviewed prior to signing some incorrect words or phrases could be present. documented in this encounter [facility] 12-18-2022 History of Presen t illness Narrative Images from the original note were not included. [facility] [address] [place] [address] [place] [phone] Dept: [phone] Dept Harriett [facility] 1960 [id number] 12/18/2022 HISTORY OF PRESENT ILLNESS: Harriett is [...] Imaging, Post-Op. Electronically signed by ROME Roberto [facility] Department of Orthopedic surgery 12/18/2022 4:35 PM Voice recognition was used for portions of this note and although it was reviewed prior to signing some incorrect words or phrases could be present. documented in this encounter [facility] 11-07-2022 Note Patient: Harriett hess Procedure Summary Date: 11/07/22 Room / Location: [address] Operating Room Anesthesia Start: 805 Anesthesia [...] once all PACU criteria has been met. [facility] 11-07-2022 Note Patient: Harriett hess Procedure Summary Date: 11/07/22 Room / Location: [address] Operating Room Anesthesia Start: 805 Anesthesia [...] opportunity for questions and acknowledgement of understanding. [facility] 11-07-2022 Miscellaneous Notes Written discharge instructions [...] lift leg off bed. Belongings retrieved from [employer]. Pre-operative Diagnosis: Right posterior tibial tendon rupture [...] to normal structures that can lead to manager long term care problems of pain or dysfunction, wound healing [...] patient's ASA was verified by the nurse line assigner and the anesthesia staff. Fire risk was [...] surfaces of the calcaneocuboid joint. A lamina glass blower was placed both in the subtalar joint [...] was in approximately 5 of valgus and restorationist of the longitudinal arch height was present. [...] week post-op visit. documented in this encounter [facility] 11-07-2022 Note Formatting of this n ote might be different from the original. Written discharge instructions reviewed with pt mom and brother. Questions answered. [facility] 11-07-2022 Note Formatting of this n ote might be different from the original. Assisted into wheelchair to use restroom. Able to maintain non weight bearing. Provided with crutches has knee scooter at home and ramp. Crutches adjusted to height and measured. States she has walker and has been practicing. [facility] 11-07-2022 Note Formatting of this n ote might be different from the original. Received pt from OR to recovery phase 1 arouses easily to name and denies pain is able to move toes and lift leg off bed. Belongings retrieved from [employer]. T [facility] 11-07-2022 Note Airway Date/Time: 11/07/2022 8:23 AM Urgency: scheduled Airway not difficult General Information and Staff Patient location during procedure: Procedural Resident/CASING RUNNER: BERTRAND Waggoner CRNA Performed: CASING RUNNER Performed by: BERTRAND Waggoner CRNA Authorized by: [...] of glottis only Placement verified by: capnometry [facility] 11-07-2022 Note Peripheral Block Time Out: [...] monitoring: heart rate, continuous pulse ox and patient monitor O2: Room air Laterality: right Injection [...] No paresthesias reported by patient during injection [facility] 11-07-2022 Note H&P reviewed. The pa tient was examined and there are no changes to the H&P. [facility] 11-07-2022 Note Formatting of this n [...] to normal structures that can lead to manager long term care problems of pain or dysfunction, wound healing [...] patient's ASA was verified by the nurse line assigner and the anesthesia staff. Fire risk was [...] surfaces of the calcaneocuboid joint. A lamina glass blower was placed both in the subtalar joint [...] was in approximately 5 of valgus and restorationist of the longitudinal arch height was present. [...] foot at the 6 week post-op visit. [employer] Phone: 11-07-2022 Hospital Discharg e instructions ROME Roberto - 11/07/2022 7:36 AM EDT Images from the original note were not included. SPLINT INSTRUCTIONS Keep your splint clean and dry. Do not put anything down in the splint to scratch. If your splint gets wet or starts to feel uncomfortable call Dr Mendoza immediately ([phone]). If you see any blood on the outside bandage reinforce it on the surface with gauze and an celeste bandage and call Dr Mendoza [phone]. Do not walk or stand on your [...] recreational drugs while taking the narcotic medication.[facility] restricts the amount of pain pills [...] water in it, call Dr. Mendoza's office ([phone]) immediately and you will be instructed which [...] sent through Care Everywhere.General Anesthesia Discharge Instructions (Maltese)documented in this encounter [facility] 11-07-2022 Attending History and physical note H&P reviewed. The patient was examined and there are no changes to the H&P. Source Note - Lacey Mendoza MD - 10/09/2022 10:30 AM EDT Images from the original note were not included. [facility] [address] [place] [phone] Dept: [phone] Dept Harriett [employer] 1960 [id number] 10/09/2022 HISTORY OF PRESENT ILLNESS: Harriett is a 62 y.o. female here today for evaluation of her right foot. 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 Her left foot is starting to hurt [...] to normal structures that can lead to manager long term care problems of pain or dysfunction, wound healing complications, the possibility of nonunion or malunion for any bone procedures if they are required and late or chronic pain. I explained to Harriett that surgery can potentially make their condition worse or can lead to other unexpected problems that can have manager long term care effects on their function or comfort. In [...] scheduled. Electronically signed by Lacey Mendoza MD [facility] Department of Orthopedic surgery 10/09/2022 12:32 PM Voice recognition was used for portions of this note and although it was reviewed prior to signing some incorrect words or phrases could be present. [facility] 11-07-2022 History and physical note H&P reviewed. The patient was examined and there are no changes to the H&P. Source Note - Lacey Mendoza MD - 10/09/2022 10:30 AM EDT Images from the original note were not included. [facility] [address] [place] [address] [place] [phone] Dept: [phone] Dept Harriett [employer] 1960 [id number] 10/09/2022 HISTORY OF PRESENT ILLNESS: Harriett is a 62 y.o. female here today for evaluation of her right foot. 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 Her left foot is starting to hurt [...] to normal structures that can lead to prison problems of pain or dysfunction, wound healing complications, the possibility of nonunion or malunion for any bone procedures if they are required and late or chronic pain. I explained to Harriett that surgery can potentially make their condition worse or can lead to other unexpected problems that can have prison effects on their function or comfort. In [...] scheduled. Electronically signed by Lacey Mendoza MD [facility] Department of Orthopedic surgery 10/09/2022 12:32 PM Voice recognition was used for portions of this note and although it was reviewed prior to signing some incorrect words or phrases could be present. documented in this encounter [facility] 10-31-2022 Note Patient: Harriett hess Procedure Information Date/Time: 11/07/22 0800 Procedures: RIGHT TRIPLE ARTHRODESIS AND ACHILLES TENDON LENGTHENING (Right: Foot) - 3 hours LENGTHENING OR SHORTENING OF TENDON LEG OR ANKLE (Right: Leg Lower) Location: [address] Operating Room Surgeons: Lacey Mendoza MD [...] Electronically Signed On 11-02-2022 17:17:52 EDT by [facility] 10-31-2022 Note Comprehensive PreSur gical History and Physical ? Name: Harriett Dueñas : 1960 (Age-62 y.o.) Date of Service: Pt seen/examined on 10/31/2022 Procedure Information Date/Time: 11/07/22 0800 Procedures: RIGHT TRIPLE ARTHRODESIS AND ACHILLES TENDON LENGTHENING (Right: Foot) - 3 hours LENGTHENING OR SHORTENING OF TENDON LEG OR ANKLE (Right: Leg Lower) Location: [address] Operating Room Surgeons: Lacey Mendoza MD [...] flat foot deformity corrected first. 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 Her left foot is starting to hurt [...] DM, Asthma/COPD, NORMAN, CAD, CHF, a fib, [place], TIA/CVA, DVT/PE Hx problems with anesthesia? - [...] focal deficit presen (more content not included)... [facility] 10-31-2022 Note Comprehensive PreSur gical History and Physical ? Name: Harriett Dueñas : 1960 (Age-62 y.o.) Date of Service: Pt seen/examined on 10/31/2022 Procedure Information Date/Time: 11/07/22 0800 Procedures: RIGHT TRIPLE ARTHRODESIS AND ACHILLES TENDON LENGTHENING (Right: Foot) - 3 hours LENGTHENING OR SHORTENING OF TENDON LEG OR ANKLE (Right: Leg Lower) Location: [address] Operating Room Surgeons: Lacey Mendoza MD [...] flat foot deformity corrected first. 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 Her left foot is starting to hurt [...] DM, Asthma/COPD, NORMAN, CAD, CHF, a fib, [place], TIA/CVA, DVT/PE Hx problems with anesthesia? - [...] focal deficit presen (more content not included)... [facility] 10-11-2022 Note Procedure: right Tri ple arthrodesis (15599) and Achilles tendon lengthening (04011) CPT codes: see above Diagnosis: No primary diagnosis found. Location for Surgery: Any location (patient choice) Schedule for: 3 hours Admission Type: Outpatient Medical Clearance: No Antibiotic: Ancef 2g IV Anesthesia: Popliteal block (single shot) + General Position and Table type: Supine on Regular OR table Radiology: Big C-arm Implants: Synthes 4.5 mm headless compression screws, Synthes 6.5 mm headless compression screws, and Targovax midfoot plates Equipment: Reji specials tray, Osteotomes, Synthes Foot Distractor, TPS, and Lamina Spreaders [facility] 10-09-2022 Note SURGERY SCHEDULING S HEET Procedure: right Triple arthrodesis (16838) and Achilles tendon lengthening (04091) CPT codes: see above Diagnosis: No primary [...] Synthes Foot Distractor, TPS, and Lamina Spreaders [facility] 10-09-2022 Note [facility] [address] [place] [address] [place] [phone] Dept: [phone] Dept Harriett Dueñas 1960 [id number] 10/09/2022 HISTORY OF PRESENT ILLNESS: Harriett is a 62 y.o. female here today for evaluation of her right foot. 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 [facility] Posterior tibial tendon dysfunction, right- Primary [facility] Diagnosis Posterior tibial tendon dysfunction (PTTD) of right lower extremity- Primary [facility] Diagnosis Posterior tibial tendon dysfunction (PTTD) of right lower extremity- Primary [facility] Diagnosis Posterior tibial tendon dysfunction (PTTD) of right lower extremity- Primary documented [facility] Diagnosis Posterior tibial tendon dysfunction (PTTD) of right lower extremity- Primary documented in this encounter [facility] Summary Purpose Family History No Family History Records Found Advance Directives No Advanced Directives Records Found Additional Source Comments Care Teams (unrecognized sec tion and content) Application Development Intern Relationship Specialty Start Date End Date [address] [place] [address] PCP - General Nurse Practitioner 10/09/22 Application Development Intern Relationship Specialty Start Date End Date [address] [place] [address] PCP - General Nurse Practitioner 10/09/22 Application Development Intern Relationship Specialty Start Date End Date [address] [place] [address] PCP - General Nurse Practitioner 10/09/22 Application Development Intern Relationship Specialty Start Date End Date [address] Arteaga [facility] [place], [place] [address] PCP - General Nurse Practitioner 10/09/22 Application Development Intern Relationship Specialty Start Date End Date [address] [facility] [place], [place] [address] PCP - General Nurse Practitioner 10/09/22 Reason for Visit (unrecogniz ed section and content) Referral ID Status Reason Start Date Expiration Date Visits Re quested Visits Authorized [id number] 1 1 Reason Comments Post-op Right foot [...] BE BASED ON THE PRIMARY CLINICAL RECORDS. [facility]. provides no warranty or guarantee of the accuracy or completeness of information in this document.
== END | disposition home or self-care (01) ==
PROVIDERS: PCP Nurse Practitioner Family; Referring Provider Nurse Practitioner Family; Visit Provider Nurse Practitioner Family
DX: Z01.818 Encounter for other preprocedural examination (principal); R94.31 Abnormal electrocardiogram [ECG] [EKG]
CPT/HCPCS: 93306; A4216

== ENCOUNTER → 2024-04-09 | Outpatient (CLI) | payer OTHER, SELFPAY ==
[2024-04-09 08:09] LABS: ALB/GLOB Ratio 1.1 RATIO (0.9-2.4); AST(SGOT) 24 U/L (15-37); Alanine Aminotransfer ALT/SGPT 18 U/L (13-56); Alkaline Phosphatase 63 U/L (45-117); Anion Gap 9 (5-15); BUN 22 mg/dL (7-18); BUN/Creat Ratio 21.2 RATIO (10-20); Calcium,Total 10.1 mg/dL (8.5-10.1); Chloride 105 mmol/L (98-107); Cholesterol 199 mg/dL (200); Creatinine, Serum 1.04 mg/dL (0.55-1.02); EST Glomerular Filtration Rate 57 mL/min (>60); Est Glom Filt Rate - Afr Amer 69 mL/min (>60); Globulin 3.6 g/dL (2.2-4.2); Glucose 82 mg/dL (74-106); High Density Lipoprotein 88 mg/dL; Potassium 3.8 mmol/L (3.5-5.1); Protein, Total 7.6 g/dL (6.4-8.2); Sodium Level 138 mmol/L (136-145); Triglycerides 96 mg/dL; Very Low Density Lipoprotein 19 mg/dL (5-40)
== END | disposition home or self-care (01) ==
LOC: LAB 07:22
PROVIDERS: PCP Nurse Practitioner Family; Referring Provider Internal Medicine Cardiovascular Disease; Visit Provider Internal Medicine Cardiovascular Disease
DX: N18.30 Chronic kidney disease, stage 3 unspecified (principal); R94.31 Abnormal electrocardiogram [ECG] [EKG]; E78.5 Hyperlipidemia, unspecified
CPT/HCPCS: 36415; 80053; 80061

== ENCOUNTER → 2024-11-19 | Outpatient (CLI) | payer OTHER, SELFPAY ==
[2024-11-19 09:55] LABS: Anion Gap 12 (5-15); BUN 18 mg/dL (4-19); BUN/Creat Ratio 19.4 RATIO (10-20); Calcium,Total 8.9 mg/dL (7.6-11.0); Carbon Dioxide 21.6 mmol/L (21.0-32.0); Chloride 105 mmol/L (98-108); Cholesterol 214 mg/dL (<=200); Glucose 73 mg/dL (70-99); Low Density Lipoprotein Calc. 135 mg/dL; Potassium 4.2 mmol/L (3.3-5.1); Triglycerides 66 mg/dL; Very Low Density Lipoprotein 13 mg/dL (5-40); cholesterol:hdl ratio screen 3.26
== END | disposition home or self-care (01) ==
PROVIDERS: PCP Nurse Practitioner Family; Referring Provider Internal Medicine Cardiovascular Disease; Visit Provider Internal Medicine Cardiovascular Disease
DX: E78.5 Hyperlipidemia, unspecified (principal); E78.1 Pure hyperglyceridemia; I10 Essential (primary) hypertension
CPT/HCPCS: 36415; 80048; 80061